=== PATIENT | female | born 1945 | race Caucasian/White ===

== ENCOUNTER 2019-10-16 16:20 | Emergency (ER) | payer MEDICARE, MEDICAID, SELFPAY ==
--- NOTE | ~2019-10-16 | XR_ITS ---
XR abdomen/kub 1V 10/16/2019 22:03 INDICATION: Constipation. Abdominal distention. TECHNIQUE: KUB COMPARISON: None FINDINGS: Bowel gas pattern is normal. Moderate colonic fecal loading. There is no evidence of free a ir, mass, organomegaly, ascites or obstruction. No abnormal calculi are seen. The bones appear inta ct. There are atherosclerotic changes. There is lumbar spondylosis. IMPRESSION: 1: No acute abdominal abnormality identified. Reviewed, dictated and finalized at location A.
--- NOTE | ~2019-10-16 | XR_ITS ---
EXAMINATION: XR chest 1V portable 10/16/2019 22:03 INDICATION: Weight loss PROCEDURE: AP portable chest COMPARISON: 11/25/2018 FINDINGS: The lungs are clear. The cardiomediastinal silhouette is within normal limits. There are no pleural effusions. There is no pneumothorax suspected. Calcified granuloma right lung base. Gene ralized osteopenia. Old healed distal right humeral fracture. There is atherosclerosis of the aorta. IMPRESSION: 1: NO ACUTE CARDIOPULMONARY DISEASE. Reviewed, dictated and finalized at location A.
--- NOTE | ~2019-10-16 | CT_ITS ---
EXAMINATION: CT abdomen pelvis wo con DATE: 10/16/2019 23:41 INDICATION: Mid abdominal pain TECHNIQUE: Computed tomography (CT) of the abdomen and pelvis was performed without intravenous contr ast. The dose-length product was 181.71 mGy-cm. Automated exposure control and iterative reconstructi on technique were employed. COMPARISON: CT dated 03/01/2014 FINDINGS: There small 2-3 mm nodules in the lingula, likely benign. Otherwise, lung bases unremarkabl e. Heart size normal. There are calcified granulomas in the right lower lung, spleen and liver, consi stent with chronic granulomatous disease. There is extensive atherosclerosis. No aneurysm. The pancreas, adrenal glands and kidneys are unremarkable. No lymphadenopathy. Nonobstructive bowel g as pattern. No free air or free fluid. There is scoliosis. No acute osseous abnormality. IMPRESSION: 1. No acute abdominal abnormality. 2: Small 2-3 mm nodules in the left upper lobe, likely benign. Follow-up CT in 12 months recommended. Reviewed, dictated and finalized at location A.
[2019-10-16 17:36] VITALS: BP 126/95; PULSE 97; RESP 20; TEMP 36.3; O2SAT 98
[2019-10-16 21:32] VITALS: BP 168/93; PULSE 91; RESP 20; O2SAT 97
--- NOTE | 2019-10-16 21:32 | PC.NURSE ---
Pt states last night she had trouble having a bowel movement, she pulled out small pieces. Pt states she doesnt know what color her BM was due to being legally blind. Pt states her bottom only hurts when she bothers it, states her bottom feels like its burning when it does hurt.
--- NOTE | 2019-10-16 21:40 | ED.ABDPAIN ---
HPI - Abdominal Pain General Chief Complaint: Abdominal Pain Stated Complaint: GI bleed/constipation/weight loss Time Seen by Provider: 10/16/19 21:25 Source: patient History of Present Illness HPI narrative: This patient is a 73 year old female who presents for evaluation of weight loss and constipation. Patient states there is a new nurse at [facility] who told her she looked like she was dehydrated. She reports she has been loosing weight over the past 7 years. She reports in 2012 she weighted 150 pounds and then she had a stroke. AFter getting out of rehab, she had lost 20 pounds. She has continued to lose weight since then. She reports she is also having an issue with constipation. Yesterday she had to strain to have a bowel movement. She states she does not know if she has abdominal pain but her abdomen just feels weird. SHe denies vomiting or fever. Related Data Home Medications Medication Instructions Recorded Confirmed ergocalciferol (vitamin D2) 1,250 50,000 unit PO WEEKLY 12/26/18 05/05/19 mcg (50,000 unit) capsule hard contact lens fitter #30 ml 12/26/18 05/05/19 light mineral oil 1 %-mineral oil drop EACH EYE 12/26/18 05/05/19 4.5 % eye drops polymyxin B sulf-trimethoprim drop EACH EYE 12/26/18 05/05/19 prednisolone acetate 1 % eye 1 drop RIGHT EYE Q12H 12/26/18 05/05/19 drops,suspension sodium chloride 5 % eye drops 1 drop EACH EYE TID 12/30/18 05/05/19 Allergies Allergy/AdvReac Type Severity Reaction Status Date / Time codeine Allergy Severe Hives Verified 05/01/19 13:51 Iodinated Contrast Media Allergy Unknown hives Verified 05/01/19 13:51 lisinopril Allergy Unknown hives Verified 05/01/19 13:51 Penicillins Allergy Unknown rash Verified 05/01/19 13:51 Sulfa (Sulfonamide Allergy Unknown rash Verified 05/01/19 13:51 Antibiotics) Contrast Media Allergy Unknown hives Uncoded 05/01/19 13:51 Review of Systems Review of Systems: All systems reviewed & are unremarkable except as noted in HPI and below Constitutional: Constitutional: Denies chills and Denies fever(s) Respiratory: Respiratory: Denies cough and Denies dyspnea Gastrointestinal: Gastrointestinal: Reports abdominal pain, Reports constipation, Denies nausea and Denies vomiting PMFSH Past Medical History Medical History (Updated 10/17/19 @ 00:18 by Jeannette Ugalde MD) CVA (cerebral vascular accident) Glass prosthetic eye on examination Hypothyroidism (acquired) Surgical History Surgical History (Updated 10/17/19 @ 00:16 by Jeannette Ugalde MD) H/O: hysterectomy Social History Social History Smoking status: Never smoker Second hand tobacco smoke exposure: No Alcohol intake: never Substance use: never Gender identity (if verbalized by the patient): Female Exam Const: General: alert Nutritional Appearance: thin Orientation/consciousness: patient oriented x3 Resp: Effort & Inspection: normal respiratory effort Auscultation: clear to auscultation bilaterally Cardio: Rate: regular rate Rhythm: regular rhythm Heart sounds: no murmurs GI: GI Palp: Yes Soft to palpation, Yes Tenderness to palpation present (GI) (left mid abdomen focal tenderness), No Guarding due to palpation present (GI) and No Rigid due to palpation Back/Spine/Pelvis: Back: no CVA tenderness Skin: General skin exam: normal color Rashes: no rashes Neuro: General: patient oriented x3 and moves all extremities Course Reevaluation(s) Reevaluation #1: Patient was found to have renal insufficiency so she was given IVF. No obstruction, mass or acute finding seen. Date: 10/17/19 Time: 00:16 Vital Signs Vital signs: Vital Signs Temperature 97.3 F L 10/16/19 17:36 Pulse Rate 97 10/16/19 17:36 Respiratory Rate 20 10/16/19 17:36 Blood Pressure 126/95 H 10/16/19 17:36 Pulse Oximetry 98 10/16/19 17:36 Temperature 97.3 F L 10/16/19 17:36 Pulse Rate 9
[2019-10-16 22:46] LABS: Basophils Absolute Auto 0.1 K/mm3 (0.0-0.1); Basophils Percent Auto 0.8 % (0.2-1.2); Eosinophils Absolute Auto 0.1 K/mm3 (0-0.3); Eosinophils Percent Auto 0.8 % (0-4.4); Hematocrit 33.5 % (37.0-47.0); Hemoglobin 11.4 g/dL (12.0-15.0); Immature Granulocyte Absolute 0.01 K/mm3 (0.00-0.031); Immature Granulocyte Percent A 0.2 % (0-0.5); Lymphocytes Absolute Auto 2.48 K/mm3 (0.9-3.2); Lymphocytes Percent Auto 40.7 % (18.3-44.2); Mean Corpuscular Hemoglobin 30.7 pg (26-34); Mean Corpuscular Volume 90.3 fl (80-100); Mean Platelet Volume 10.5 fl (7.4-10.4); Monocytes Absolute Auto 0.4 K/mm3 (0.1-0.6); Monocytes Percent Auto 7.1 % (2.6-8.5); Neutrophils Absolute Auto 3.1 K/mm3 (1.3-6.7); Neutrophils Percent Auto 50.4 % (45.5-73.1); Platelet Count Result 168 k/mm3 (150-375); Red Blood Count 3.71 M/mm3 (4.2-5.4); Red Cell Distribution Width 12.5 % (11.5-14.5); White Blood Count 6.1 K/mm3 (4.5-10.0)
[2019-10-16 23:00] VITALS: BP 128/58; RESP 16; O2SAT 90
[2019-10-16 23:01] LABS: Alanine Aminotransferase 11 U/L (4-35); Albumin Level 3.9 g/dL (3.5-5.1); Alkaline Phosphatase 59 U/L (38-126); Anion Gap 7 mmol/L (8-16); Aspartate Amino Transferase 21 U/L (14-36); Bilirubin,Total 0.8 mg/dL (0.2-1.3); Blood Urea Nitrogen 21 mg/dL (7-17); Calcium 8.9 mg/dL (8.4-10.2); Carbon Dioxide 25 mmol/L (22-30); Chloride 105 mmol/L (98-107); Estimated Glomerular Filt Rate > 60; Glucose 90 mg/dL (65-105); Lipase 97 U/L (23-300); Potassium 3.9 mmol/L (3.4-5.0); Sodium 137 mmol/L (137-145)
[2019-10-16 23:02] LABS: Magnesium 1.8 mg/dL (1.6-2.3)
[2019-10-16] MEDS: LACTATED RINGERS 1,000 ML 999 ML IV CONT (23:20)
--- NOTE | 2019-10-17 01:00 | PC.NURSE ---
This nurse spoke with [facility] at [facility] due to there being no nurse in the building. This nurse informed [facility] that Pt would b returning by EMS ETA of 0300.
--- NOTE | 2019-10-17 01:05 | PC.NURSE ---
called [facility] to transfer patient. Eta [id number]
[2019-10-17 01:10] LABS: Add Urine Microscopic? YES; Appearance Urine Clear (Clear); Bilirubin Urine Negative (Negative); Blood Urine 1+ (Negative); Color Urine Straw (Yellow); Glucose Urine UA Negative (Negative); Ketones Urine Trace mg/dL (Negative); Leukocyte Esterase Ur Trace LEU/UL (Negative); Nitrate Urine Negative (Negative); Protein Urine Negative (Negative); RBC Urine 0-2 /hpf (0-2); Squamous Epithelial Cell Urine Rare /hpf (Few); Urobilinogen Urine Negative mg/dL (<2.0); WBC Urine 0-3 /hpf
[2019-10-17 01:15] VITALS: BP 140/99; PULSE 85; RESP 17; O2SAT 98
[2019-10-17 01:30] VITALS: BP 135/63; PULSE 96; RESP 16; O2SAT 98
[2019-10-17 01:42] VITALS: BP 140/99; PULSE 85; RESP 17; O2SAT 98
[2019-10-17 02:45] VITALS: BP 121/59; PULSE 77; O2SAT 98
--- NOTE | 2019-10-17 02:53 | PC.NURSE ---
EMS ETA has changed to [id number].
[2019-10-17 05:43] VITALS: BP 118/68; PULSE 93; RESP 18; O2SAT 96
--- NOTE | 2019-10-17 07:13 | PC.NURSE ---
EMS eta [id number]
[2019-10-17 08:18] VITALS: BP 130/55; PULSE 89; RESP 18; O2SAT 98
== END 2019-10-17 08:19 ==
PROVIDERS: Emergency Provider General Practice; PCP Internal Medicine
DX: E86.0 Dehydration (principal); Z86.73 Personal history of transient ischemic attack (TIA), and cerebral infarction without residual deficits; E03.9 Hypothyroidism, unspecified; R91.8 Other nonspecific abnormal finding of lung field
CPT/HCPCS: 36415; 71045; 74018; 74176; 80053; 81001; 83690; 83735; 85025; 96360; 99284; J7120

== ENCOUNTER 2020-08-23 13:21 | Outpatient (CLI) | payer MEDICARE, MEDICAID, SELFPAY ==
[2020-08-23 13:54] LABS: Hematocrit 35.5 % (37.0-47.0); Hemoglobin 11.9 g/dL (12.0-15.0); Mean Corpuscular HGB Conc 33.5 g/dl (32-36); Mean Corpuscular Hemoglobin 30.5 pg (26-34); Mean Platelet Volume 10.3 fl (7.4-10.4); Platelet Count Result 186 k/mm3 (150-375); Red Cell Distribution Width 12.5 % (11.5-14.5); White Blood Count 5.9 K/mm3 (4.5-10.0)
[2020-08-23 14:06] LABS: Alanine Aminotransferase 10 U/L (4-35); Albumin Level 4.3 g/dL (3.5-5.1); Alkaline Phosphatase 65 U/L (38-126); Anion Gap 10 mmol/L (8-16); Aspartate Amino Transferase 24 U/L (14-36); Bilirubin,Total 0.8 mg/dL (0.2-1.3); Blood Urea Nitrogen 17 mg/dL (7-17); Calcium 9.4 mg/dL (8.4-10.2); Carbon Dioxide 25 mmol/L (22-30); Chloride 103 mmol/L (98-107); Estimated Glomerular Filt Rate > 60; Glucose 97 mg/dL (65-105); Potassium 4.1 mmol/L (3.4-5.0); Sodium 138 mmol/L (137-145)
[2020-08-23 14:35] LABS: Thyroid Stimulating Hormone 0.043 uIU/mL (0.465-4.680)
[2020-08-23 14:52] LABS: Free T4 Free Thyroxine 1.84 ng/mL (0.78-2.19); Vitamin D 25 Hydroxy 90.4 ng/mL
[2020-08-23 15:10] LABS: Folic Acid 13.6 ng/mL (2.76->20)
== END 2020-08-23 13:22 | disposition home or self-care (01) ==
LOC: ANHLAB 13:28
PROVIDERS: PCP Internal Medicine; Visit Provider Physician Assistant
DX: E03.9 Hypothyroidism, unspecified (principal); I10 Essential (primary) hypertension; R79.9 Abnormal finding of blood chemistry, unspecified; R53.83 Other fatigue; E55.9 Vitamin D deficiency, unspecified
CPT/HCPCS: 36415; 80053; 82306; 82607; 82746; 84439; 84443; 85027

== ENCOUNTER → 2020-09-06 13:51 | Outpatient (CLI) | payer MEDICARE, MEDICAID, SELFPAY ==
--- NOTE | ~2020-09-06 | MM_ITS ---
EXAMINATION: MM screening bird BI w chino HISTORY: Screening TECHNIQUE: Craniocaudal and mediolateral oblique 3-D tomosynthesis images were obtained and synthetic 2-D images were generated. CAD analysis was submitted and interpreted. COMPARISON: Comparison to multiple prior studies sequentially, with oldest reviewed study dated 03/12. BREAST PARENCHYMAL COMPOSITION: The breasts are extremely dense, which lowers the sensitivity of mamm ography. FINDINGS: There is a new low density in asymmetry in the lateral aspect of the right breast on CC vie w, best seen on exaggerated CC image. The left breast is stable without evidence for malignancy. IMPRESSION: 1. New focal masslike asymmetry lateral aspect of the right breast. 2. Additional mammographic views and possible breast ultrasound are recommended. BI-RADS Category 0: Incomplete: Needs additional imaging evaluation. Reviewed, dictated and finalized at location A. IMPRESSION: 1. New focal masslike asymmetry lateral aspect of the right breast. 2. Additional mammographic views and possible breast ultrasound are recommended . BI-RADS Category 0: Incomplete: Needs additional imaging evaluation.
== END ==
PROVIDERS: PCP Physician Assistant; Visit Provider Physician Assistant
DX: Z12.31 Encounter for screening mammogram for malignant neoplasm of breast (principal); R92.8 Other abnormal and inconclusive findings on diagnostic imaging of breast
CPT/HCPCS: 77063; 77067

== ENCOUNTER → 2020-09-27 12:37 | Outpatient (CLI) | payer MEDICARE, MEDICAID, SELFPAY ==
--- NOTE | ~2020-09-27 | MM_ITS ---
EXAMINATION: MM diagnostic bird RT w chino HISTORY: Follow-up right breast asymmetry TECHNIQUE: Additional 3-D tomosynthesis images of the right breast were performed and synthetic 2-D i mages were generated. CAD analysis was submitted and interpreted. COMPARISON: Comparison to multiple prior studies sequentially, with oldest reviewed study dated 03/12. BREAST PARENCHYMAL COMPOSITION: The breasts are extremely dense, which lowers the sensitivity of mamm ography FINDINGS: There are no suspicious masses, calcifications or architectural distortion in the right dwayne ast to suggest malignancy. Right breast asymmetry compresses with spot views, compatible superimposed fibroglandular tissue. IMPRESSION: 1. No mammographic evidence for malignancy in the right breast. 2. Routine yearly screening mammogram and regular clinical breast examination are recommended. BI-RADS Category 1: Negative Reviewed, dictated and finalized at location A. IMPRESSION: 1. No mammographic evidence for malignancy in the right breast. 2. Routine yearly screening mammogram and regular clinical breast examination a re recommended. BI-RADS Category 1: Negative
--- NOTE | ~2020-09-27 | DEXA_ITS ---
Bone Density Report Name: Marlene Mina Age: 74 Sex: Female Ethnicity: White Date of : 1945 Indication: postmenopausal osteoporosis; height loss; hysterectomy; Referring Provider: Fransico Crane Study: Bone densitometry was performed. Exam Date: September 27, 2020 Accession number: [id number] Bone Density: Region BMD T-score Z-score Classification AP Spine (L1-L4) 0.666 -3.5 -1.0 Osteoporosis Femoral Neck (Left) 0.301 -4.9 -2.8 Osteoporosis Total Hip (Left) 0.386 -4.6 -2.7 Osteoporosis Femoral Neck (Right) 0.346 -4.5 -2.4 Osteoporosis Total Hip (Right) 0.373 -4.7 -2.8 Osteoporosis Total Hip Mean 0.380 -4.7 -2.8 Osteoporosis World Health Organization criteria for BMD impression classify patients as: Normal (T-score at or above -1.0), Osteopenia (T-score between -1.0 and -2.5), or Osteoporosis (T-score at or below -2.5). 10-year Fracture Risk: FRAX not reported because: Some T-score for Spine Total or Hip Total or Femoral Neck at or below -2.5 Previous Exams: Region Exam Age BMD T-score BMD Change BMD Change Date g/cm2 vs Baseline vs Previous AP Spine(L1-L4) 09/27/2020 74 0.666 -3.5 -0.144* -0.084* 03/12/2017 71 0.750 -2.7 -0.061* 0.008 02/07/2015 69 0.742 -2.8 -0.068* -0.077* 02/01/2012 66 0.819 -2.1 0.009 0.003 12/26/2009 64 0.816 -2.1 0.006 0.006 05/17/2004 58 0.810 -2.2 Total Hip(Left) 09/27/2020 74 0.386 -4.6 -0.465* -0.202* 03/12/2017 71 0.588 -2.9 -0.263* 0.014 02/07/2015 69 0.574 -3.0 -0.277* -0.246* 02/01/2012 66 0.821 -1.0 -0.030* 0.083* 12/26/2009 64 0.737 -1.7 -0.114* -0.114* 05/17/2004 58 0.851 -0.7 Total Hip(Right) 09/27/2020 74 0.373 -4.7 -0.534* -0.194* 03/12/2017 71 0.568 -3.1 -0.340* 0.003 02/07/2015 69 0.565 -3.1 -0.342* -0.289* 02/01/2012 66 0.854 -0.7 -0.053* 0.055* 12/26/2009 64 0.799 -1.2 -0.108* -0.108* 05/17/2004 58 0.907 -0.3 *Denotes significance at 95% confidence level, LSC for AP Spine = 0.022 g/cm2, LSC for Total Hip = 0.027 g/cm2 Clinical Information Provided by Patient: Has used the following medications: Vitamin D Has the following medical conditions: Hysterectomy Patient maximum height was 62 Menopause Age: 39 Drinks caffeinated
== END ==
PROVIDERS: PCP Physician Assistant; Visit Provider Physician Assistant
DX: R92.8 Other abnormal and inconclusive findings on diagnostic imaging of breast (principal); M85.88 Other specified disorders of bone density and structure, other site; M81.0 Age-related osteoporosis without current pathological fracture
CPT/HCPCS: 77061; 77065; 77080; G0279

== ENCOUNTER 2021-05-02 09:23 | Outpatient (CLI) | payer MEDICARE, MEDICAID, SELFPAY ==
[2021-05-02 09:47] LABS: Hematocrit 36.3 % (37.0-47.0); Hemoglobin 12.1 g/dL (12.0-15.0); Mean Corpuscular HGB Conc 33.3 g/dl (32-36); Mean Corpuscular Hemoglobin 30.7 pg (26-34); Mean Corpuscular Volume 92.1 fl (80-100); Mean Platelet Volume 9.1 fl (7.4-10.4); Platelet Count Result 226 k/mm3 (150-375); Red Blood Count 3.94 M/mm3 (4.2-5.4); Red Cell Distribution Width 14.3 % (11.5-14.5); White Blood Count 6.3 K/mm3 (4.5-10.0)
[2021-05-02 09:57] LABS: Alanine Aminotransferase 12 U/L (4-35); Albumin Level 4.1 g/dL (3.5-5.1); Alkaline Phosphatase 61 U/L (38-126); Anion Gap 5 mmol/L (8-16); Aspartate Amino Transferase 22 U/L (14-36); Blood Urea Nitrogen 18 mg/dL (7-17); Calcium 8.9 mg/dL (8.4-10.2); Carbon Dioxide 27 mmol/L (22-30); Chloride 100 mmol/L (98-107); Estimated Glomerular Filt Rate > 60; Glucose 92 mg/dL (65-110); Potassium 4.2 mmol/L (3.4-5.0); Sodium 132 mmol/L (137-145)
[2021-05-02 10:15] LABS: Free T4 Free Thyroxine 1.13 ng/mL (0.78-2.19)
[2021-05-02 10:23] LABS: Add Urine Microscopic? YES; Appearance Urine Turbid (Clear); Bacteria Urine 2+ /hpf; Bilirubin Urine Negative (Negative); Blood Urine 1+ (Negative); Color Urine Yellow (Yellow); Glucose Urine UA Negative (Negative); Ketones Urine Negative (Negative); Leukocyte Esterase Ur 3+ LEU/UL (NEGATIVE); Mucus Urine Rare /lpf; Nitrate Urine Positive (Negative); Protein Urine 1+ mg/dL (Negative); RBC Urine 21-50 /hpf (0-2); Specific Grav Ur 1.009 (1.001-1.035); Squamous Epithelial Cell Urine Occasional /hpf (Few); Urobilinogen Urine Negative mg/dL (<2.0); WBC Clumps Urine Present /HPF; WBC Urine >75 /hpf (0-3)
[2021-05-02 11:04] LABS: Folic Acid 4.9 ng/mL (2.76->20)
== END 2021-05-02 09:24 | disposition home or self-care (01) ==
LOC: ANHLAB 09:26
PROVIDERS: PCP Internal Medicine; Visit Provider Physician Assistant
DX: E03.9 Hypothyroidism, unspecified (principal); R53.83 Other fatigue; R63.4 Abnormal weight loss
CPT/HCPCS: 36415; 80053; 81001; 82607; 82746; 84439; 84443; 85027

== ENCOUNTER 2021-05-14 15:09 | Inpatient (IN) | payer MEDICARE, MEDICAID, SELFPAY ==
--- NOTE | ~2021-05-14 | XR_ITS ---
EXAMINATION: XR hip LT 2V w AP pelvis EXAM DATE: 05/14/2021 15:45 INDICATION: fall, pain to left hip and pelvic bone TECHNIQUE: Left hip frontal, crosstable lateral projections for interpretation. Frontal projection pe lvis. Correlation is made to pelvic x-ray 03/02/2014. FINDINGS: Bones are osteopenic. Please note that osteopenia limits sensitivity for detecting fractur es by radiographs. There is mildly impacted left subcapital femoral neck fracture. Pelvic ring appe ars intact. No dislocation. IMPRESSION: Mildly impacted left subcapital femoral neck fracture. Reviewed, dictated and finalized at location .
--- NOTE | ~2021-05-14 | CT_ITS ---
EXAMINATION: CT brain wo con EXAM DATE: 05/14/2021 16:43 INDICATION: Fall, head injury. TECHNIQUE: Spiral CT of the head was performed without contrast. Axial, coronal and sagittal images were reviewed. The dose-length product (DLP) for this examination was 605.33 mGy-cm. The exposure w as tailored according to patient size, and iterative reconstruction (ASIR) was used as additional dos e reduction technique. Comparison is made to prior examination from 10/27/2012. FINDINGS: There is no acute intraparenchymal hemorrhage. No evidence of intraparenchymal brain mass lesion. No evidence of acute infarction. Please note that initial head CT has limited sensitivity f or small or acute infarctions. Small old left frontoparietal lobe paramedian infarction, was not pre sent in 2012. There is mild periventricular and subcortical hypodensity, nonspecific but probably re lated to small vessel ischemic disease. There is moderate prominence of the sulci and ventricles re lated to cerebral atrophy. There is intracranial carotid arteriosclerosis. There are no extra-axia l collections. There is no mass effect or midline shift. Left globe prosthesis. Right-sided catarac t surgery. Soft tissue is unremarkable. The visualized sinuses and mastoid air cells are well aerate d. IMPRESSION: 1. No acute intracranial findings. 2. Chronic age related findings. 3. 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 Reviewed, dictated and finalized at location G.
--- NOTE | ~2021-05-14 | XR_ITS ---
EXAMINATION: XR chest 1V portable EXAM DATE: 05/14/2021 16:14 INDICATION: pre-op . TECHNIQUE: Portable AP frontal chest x-ray was obtained. Comparison is made to prior examination from 10/16/2019. FINDINGS: The lungs are severely hyperinflated which can be seen with chronic obstructive pulmonary d isease (a clinical diagnosis of functional impairment), but is not diagnostic of it. There is right b asilar calcified granuloma. No confluent consolidation, pneumothorax or pleural effusion suspected. C ardiomediastinal silhouette is normal. There is aortic arteriosclerosis. There are bony degenerative changes. IMPRESSION: Chronic hyperinflation. Reviewed, dictated and finalized at location G. IMPRESSION: Chronic hyperinflation.
--- NOTE | ~2021-05-14 | XR_ITS ---
XR surgery orthopedic DATE: 05/15/2021 20:29 INDICATION: Left hip pinning TECHNIQUE: 2 spot C-arm images of left hip 35.1 seconds fluoroscopy time 2.86 mGy COMPARISON: 05/14/2021 pelvis and left hip FINDINGS: 3 lag screws traverse the intertrochanteric area and femoral neck extending into the femora l head, providing internal fixation for a mildly impacted virtually nondisplaced subcapital femoral n yaneth fracture. IMPRESSION: ORIF left subcapital femoral neck fracture Reviewed, dictated and finalized at Location A. Reviewed, dictated and finalized at location A.
[2021-05-14 15:07] VITALS: BP 113/92; PULSE 78; RESP 26; O2SAT 97
--- NOTE | 2021-05-14 15:59 | ECG_ITS ---
Measurements Intervals [place] Rate: 78 P: 86 GA: 192 QRS: -59 QRSD: 97 T: 79 QT: 365 QTc: 418 Interpretive Statements SINUS RHYTHM LEFT ANTERIOR FASCICULAR BLOCK [QRS AXIS <= -45, QR IN I, RS IN II] ABNORMAL ECG NO PREVIOUS ECG AVAILABLE FOR COMPARISON Electronically Signed On 05-14-2021 20:52:09 CDT by Alvin Holly M.D.
--- NOTE | 2021-05-14 16:01 | ED.FALL ---
HPI - Fall General Chief Complaint: Fall Stated Complaint: left hip pain, ground level fall Time Seen by Provider: 05/14/21 15:18 Source: patient and RN notes reviewed History of Present Illness HPI Narrative: 75-year-old female presenting to the emergency department for evaluation after having a ground-level fall at her residential. Patient states that she wears oversized shoes but has no other shoes to wear. Patient states she had a ground-level fall this morning during which she fell and landed on her left side and injured her hip. Patient states she did strike her face but denies any loss of consciousness. Patient is very cachectic. Patient's primary complaint is left hip pain worsened with movement. Related Data Home Medications Medication Instructions Recorded Confirmed hard eyeglass lens grinder #30 ml 12/26/18 04/01/21 light mineral oil 1 %-mineral oil drop EACH EYE 12/26/18 04/01/21 4.5 % eye drops polymyxin B sulfate-trimethoprim drop EACH EYE 12/26/18 04/01/21 eye drops prednisolone acetate 1 % eye 1 drop RIGHT EYE Q12H 12/26/18 04/01/21 drops,suspension sodium chloride 5 % eye drops 1 drop EACH EYE TID 12/30/18 04/01/21 olopatadine 0.1 % eye drops 1 drp EACH EYE BID 08/29/20 04/01/21 Allergies Allergy/AdvReac Type Severity Reaction Status Date / Time codeine Allergy Severe Hives Verified 05/14/21 17:41 Iodinated Contrast Media Allergy Unknown hives Verified 05/14/21 17:41 lisinopril Allergy Unknown hives Verified 05/14/21 17:41 Penicillins Allergy Unknown rash Verified 05/14/21 17:41 Sulfa (Sulfonamide Allergy Unknown rash Verified 05/14/21 17:41 Antibiotics) Contrast Media Allergy Unknown hives Uncoded 05/14/21 17:41 Review of Systems Review of Systems: CONSTITUTIONAL: Denies fever, chills, or sweats. EYES: Denies visual changes, redness, or discharge. ENT: Denies rhinorrhea, congestion, sore throat, or otalgia. CARDIOVASCULAR: Denies chest pain, palpitations, or edema. RESPIRATORY: Denies cough or dyspnea. GASTROINTESTINAL: Denies abdominal pain, nausea, vomiting, or diarrhea. GENITOURINARY: Denies dysuria or hematuria. SKIN: Denies rash or itching. MUSCULOSKELETAL: Left hip pain NEUROLOGIC: Denies headache, numbness, or weakness. 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 HEAD: normocephalic, atraumatic. EYES: PERRLA/EOMI, conjunctivae clear. NOSE: Normal no drainage NECK: Supple. No adenopathy, no masses. RESPIRATORY: Airway patent, respirations nonlabored. Clear to auscultation bilaterally, no rales, rhonchi, wheezing. CARDIOVASCULAR: Regular rate and rhythm without murmurs rubs or gallops. ABDOMINAL: Soft, nontender, nondistended, normal bowel sounds MUSCULOSKELETAL: left hip tenderness NEURO: Alert. patient at her neuro baseline SKIN: Warm, dry. Normal Color Course Course Emergency Course: case was discussed with ortho and Dr Moore will see the patient as consult. Patient will be made n.p.o. at midnight. Case was discussed with the hospitalist and patient was accepted to [facility]. Vital Signs Vital signs: Vital Signs Pulse Rate 78 05/14/21 15:07 Respiratory Rate 26 H
[2021-05-14 16:35] LABS: Basophils Percent Auto 0.4 % (0.2-1.2); Eosinophils Percent Auto 0.1 % (0-4.4); Hematocrit 33.8 % (37.0-47.0); Hemoglobin 11.4 g/dL (12.0-15.0); Immature Granulocyte Absolute 0.04 K/mm3 (0.00-0.031); Immature Granulocyte Percent A 0.4 % (0-0.5); Lymphocytes Absolute Auto 1.04 K/mm3 (0.9-3.2); Lymphocytes Percent Auto 10.6 % (18.3-44.2); Mean Corpuscular HGB Conc 33.7 g/dl (32-36); Mean Corpuscular Hemoglobin 31.1 pg (26-34); Mean Corpuscular Volume 92.1 fl (80-100); Mean Platelet Volume 9.7 fl (7.4-10.4); Monocytes Absolute Auto 0.6 K/mm3 (0.1-0.6); Monocytes Percent Auto 5.6 % (2.6-8.5); Neutrophils Absolute Auto 8.1 K/mm3 (1.3-6.7); Neutrophils Percent Auto 82.9 % (45.5-73.1); Platelet Count Result 197 k/mm3 (150-375); Red Blood Count 3.67 M/mm3 (4.2-5.4); Red Cell Distribution Width 14.2 % (11.5-14.5); White Blood Count 9.8 K/mm3 (4.5-10.0)
[2021-05-14 16:44] LABS: Prothrombin Time 13.1 Seconds (11.1-14.7)
[2021-05-14] MEDS: fentaNYL CITRATE INJ (*CRX) 100 MCG/2 ML VIAL 17.3 MCG IV PUSH (16:44)
[2021-05-14 16:50] LABS: Alanine Aminotransferase 17 U/L (4-35); Alkaline Phosphatase 68 U/L (38-126); Anion Gap 7 mmol/L (8-16); Aspartate Amino Transferase 24 U/L (14-36); Blood Urea Nitrogen 14 mg/dL (7-17); Calcium 8.7 mg/dL (8.4-10.2); Carbon Dioxide 26 mmol/L (22-30); Chloride 99 mmol/L (98-107); Estimated Glomerular Filt Rate > 60; Glucose 104 mg/dL (65-110); Potassium 3.6 mmol/L (3.4-5.0); Sodium 132 mmol/L (137-145)
[2021-05-14 18:01] VITALS: BP 131/52; PULSE 72; RESP 16; O2SAT 99
--- NOTE | 2021-05-14 18:25 | ADMGEN ---
This patient, Marlene Mina, was admitted to 2 Medical Room 259-01. Patient/family oriented to hospital policies and general routines including ID bracelet, bed and alarms, visiting hours, pain management, procedures, bathroom and other care routines, personal items, smoking policy, room service/diet, and visiting hours. Information on how to activate the Rapid Response Team has been discussed. Patient/Family are encouraged to report perceived risks to care and to ask questions if they do not understand what they are told or what they should do.
--- NOTE | 2021-05-14 18:30 | PM.IMHP ---
H&P: HPI History of Present Illness Date/Time: 05/14/21 18:30 Chief Complaint: Left hip pain after fall. Narrative: This is a 75-year-old female with history of stroke, hypothyroidism, and glaucoma presented to the emergency department from [facility] for evaluation of left hip pain after a fall. She apparently got tangled up in her over sized shoes and she fell to the ground, landing on her left hip. She had immediate, significant aching and spasming pain in that left hip and was unable to get herself up. Apparently she was unable to call for help and staff found her on the ground during their rounds this afternoon. Aside from landing on her hip she believes that she struck the left side of her face though she denies loss of consciousness. Imaging done on arrival to the ED showed a mildly impacted left subcapital femoral neck fracture and she is being admitted in this setting. At the time my evaluation she has no specific complaints and she denies headache, vertigo, loss of consciousness, cold and flu symptoms, chest pain, pleuritic pain, palpitations, shortness of breath, nausea, and vomiting. No paresthesias, skin color, or temperature changes distal to fracture. She has no known history of cardiac or pulmonary disease. Review of Systems Review of Systems: Twelve systems were reviewed. 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 She reports some mild right-sided weakness from a previous stroke. No cold or flu symptoms. No diarrhea or dysuria. Patient reports progressive weight loss over the years, stating that she does not like the food at [facility]. She is apparently on a heart healthy diet there. She denies dysphagia and concerns for aspiration though it looks like she does have a history of dysphagia. She also has spasmodic dysphonia. She denies sick contacts. Previously on Sinemet for possible Parkinson but she states she has not taken it for years. Except as documented, all other systems were reviewed and are negative. [facility] Past Medical History Medical History (Updated 05/14/21 @ 22:58 by Olga Lidia Betancourt PA-C) Cerebrovascular disease Degenerative disc disease Glaucoma Hypothyroidism Shingles Spastic dysphonia Surgical History Surgical History (Updated 05/14/21 @ 22:53 by Olga Lidia Betancourt PA-C) History of corneal transplant History of eye prosthesis Left History of hysterectomy for benign disease Family History Family History Father Patient's father is Family history of emphysema Mother Family history of cardiovascular disease Social History Social History (Updated 05/14/21 @ 22:53 by Olga Lidia Betancourt PA-C) Social History: Surrogate decision maker: Macarenamich Celestin, friend. Code status: Full code. Smoking status: Never smoker Second hand tobacco smoke exposure: No Alcohol intake: never Substance use: never Substance use type: does not use Additional living arrangements comments: Resides at [facility]. . She has a son but they are estranged apparently. Spiritual care concerns: No Meds Home Medications and Allergies Home Medications Medication Instructions Recorded Confirmed Type hard lens inspector #30 ml 12/26/18 04/01/21 History light mineral oil 1 %-mineral oil drop EACH EYE 12/26/18 04/01/21 History 4.5 % eye drops polymyxin B sulfate-trimethoprim drop EACH EYE 12/26/18 04/01/21 History eye drops prednisolone acetate 1 % eye 1 drop RIGHT EYE Q12H 12/26/18 04/01/21 History drops,suspension sodium chloride 5 % eye drops 1 drop EACH EYE TID 12/30/18 04/01/21 History propranolol 60 mg capsule,24 60 mg PO DAILY #30 cap 03/21/20 04/01/21 Rx hr,extended release phenylephrine 0.25 %-mineral oil 1 applic RECTAL QID PRN #57 g 04/08/20 04/01/21 Rx 14 %-
[2021-05-14 18:42] VITALS: BP 131/73; PULSE 87; RESP 21; TEMP 37.2; O2SAT 98
[2021-05-14 19:30] VITALS: BMI 15.2
[2021-05-14 20:00] VITALS: PULSE 93; RESP 20; O2SAT 97
--- NOTE | 2021-05-14 20:03 | PM.CNOR ---
Assessment and Plan Additional Plan [place] 2 fem neck fx on left hip medicine to see and clear for surg plan Insitu pinning of fem neck fx NPO after MN History of Present Illness HPI Consult date: 05/14/21 Chief complaint: L Femoral Neck Fracture Narrative: 75 yo legally blind lives in assistive living or nursing facility. Fell earlier today. very slightly built with cachexia. Left hip noted to have impacted fx on xray. [facility] Past Medical History Medical History (Updated 05/14/21 @ 18:54 by Olga Lidia Betancourt PA-C) Cerebrovascular disease Hypothyroidism Hypothyroidism (acquired) Spastic dysphonia Surgical History Surgical History (Updated 05/14/21 @ 18:54 by Olga Lidia Betancourt PA-C) History of hysterectomy for benign disease Family History Family History Father Patient's father is Family history of emphysema Mother Family history of cardiovascular disease Social History Social History (Updated 05/14/21 @ 19:00 by Olga Lidia Betancourt PA-C) Social History: Surrogate decision maker: Macarena Celestin, friend. Code status: Full code. Smoking status: Never smoker Second hand tobacco smoke exposure: No Alcohol intake: never Substance use: never Substance use type: does not use Additional living arrangements comments: Resides at [facility]. Spiritual care concerns: No Meds Home Medications and Allergies Home Medications Medication Instructions Recorded Confirmed Type hard last cleaner #30 ml 12/26/18 04/01/21 History light mineral oil 1 %-mineral oil drop EACH EYE 12/26/18 04/01/21 History 4.5 % eye drops polymyxin B sulfate-trimethoprim drop EACH EYE 12/26/18 04/01/21 History eye drops prednisolone acetate 1 % eye 1 drop RIGHT EYE Q12H 12/26/18 04/01/21 History drops,suspension sodium chloride 5 % eye drops 1 drop EACH EYE TID 12/30/18 04/01/21 History propranolol 60 mg capsule,24 60 mg PO DAILY #30 cap 03/21/20 04/01/21 Rx hr,extended release phenylephrine 0.25 %-mineral oil 1 applic RECTAL QID PRN #57 g 04/08/20 04/01/21 Rx 14 %-petrolatm 74.9 % rectal ointment olopatadine 0.1 % eye drops 1 drp EACH EYE BID 08/29/20 04/01/21 History ibandronate 150 mg tablet 150 mg PO MONTHLY #12 tablet 09/30/20 04/01/21 Rx docusate sodium 100 mg tablet 200 mg PO .QHS #60 tablet 10/27/20 04/01/21 Rx polyethylene glycol 3350 17 gram 17 g PO DAILY #30 ea 10/27/20 04/01/21 Rx oral powder packet ergocalciferol (vitamin D2) 1,250 50,000 unit PO .COMPLEX #6 cap 10/31/20 04/01/21 Rx mcg (50,000 unit) capsule magnesium hydroxide 1,200 mg 1,200 mg PO QHS PRN #90 tablet 11/02/20 04/01/21 Rx chewable tablet valacyclovir 1 gram tablet 1,000 mg PO TID #21 tablet 03/21/21 04/01/21 Rx collagenase clostridium histo. 250 1 applic TOPICAL DAILY PRN #90 g 03/28/21 03/28/21 Rx unit/gram topical ointment food supplemt, lactose-reduced 1 ea PO TID #1422 ml 03/28/21 03/28/21 Rx 0.06 gram-0.8 kcal/mL oral liquid levothyroxine 50 mcg tablet 50 mcg PO DAILY #30 tablet 04/10/21 Rx triamcinolone acetonide 0.1 % 1 applic TOPICAL BID #30 g 04/10/21 Rx topical cream Allergies Allergy/AdvReac Type Severity Reaction Status Date / Time codeine Allergy Severe Hives Verified 05/14/21 17:41 Iodinated Contrast Media Allergy Unknown hives Verified 05/14/21 17:41 lisinopril Allergy Unknown hives Verified 05/14/21 17:41 Penicillins Allergy Unknown rash Verified 05/14/21 17:41 Sulfa (Sulfonamide Allergy Unknown rash Verified 05/14/21 17:41 Antibiotics) Contrast Media Allergy Unknown hives Uncoded 05/14/21 17:41 Vital Signs Vital Signs - 24 hr 05/14/21 15:07 05/14/21 18:01 05/14/21 18:42 Temperature 37.2 C Pulse Rate 78 72 87 Respiratory Rate 26 H 16 21 H Blood Pressure 113/92 H 131/52 L 131/73 Pulse Oximetry 97 99 98 Exam Neuro: Other: Left hip tender over gr [place] man in
[2021-05-14] MEDS: fentaNYL CITRATE INJ (*CRX) 100 MCG/2 ML VIAL 15 MCG IV PUSH (21:59)
[2021-05-14 22:00] VITALS: BP 150/80; PULSE 93; RESP 20; TEMP 36.2; O2SAT 98
[2021-05-14 22:39] VITALS: O2SAT 97
[2021-05-15] VITALS (14 sets, daily range): BP systolic 105–164; BP diastolic 43–61; PULSE 48–94; RESP 15–21; TEMP 35.7–37.3; O2SAT 97–100
--- NOTE | 2021-05-15 05:40 | WPDANESEPP ---
Anes - Eval Pre Procedure Date/Time: 05/15/21 05:40 Pre Op Diagnosis: L Femoral Neck Fracture Patient Data Age: 75 Gender: F Height: 1.5 m Weight: 34.5 kg Last Vital Signs Temp 36.2 C L 05/14/21 22:00 Pulse 93 05/14/21 22:00 Resp 20 05/14/21 22:00 BP 150/80 H 05/14/21 22:00 Pulse Ox 97 05/14/21 22:39 Allergies Allergy/AdvReac Type Severity Reaction Status Date / Time codeine Allergy Severe Hives Verified 05/15/21 01:08 Iodinated Contrast Media Allergy Unknown hives Verified 05/15/21 01:08 lisinopril Allergy Unknown hives Verified 05/15/21 01:08 Penicillins Allergy Unknown rash Verified 05/15/21 01:08 Sulfa (Sulfonamide Allergy Unknown rash Verified 05/15/21 01:08 Antibiotics) Contrast Media Allergy Unknown hives Uncoded 05/15/21 01:08 Home Medications Medication Instructions Recorded Confirmed Type hard lens cementer #30 ml 12/26/18 05/14/21 History light mineral oil 1 %-mineral oil 1 drop EACH EYE PRN PRN 12/26/18 05/14/21 History 4.5 % eye drops polymyxin B sulfate-trimethoprim 1 drop EACH EYE BID PRN 12/26/18 05/14/21 History eye drops prednisolone acetate 1 % eye 1 drop RIGHT EYE DAILY 12/26/18 05/14/21 History drops,suspension sodium chloride 5 % eye drops 1 drop RIGHT EYE TID 12/30/18 05/14/21 History propranolol 60 mg capsule,24 60 mg PO DAILY #30 cap 03/21/20 05/14/21 Rx hr,extended release phenylephrine 0.25 %-mineral oil 1 applic RECTAL QID PRN #57 g 04/08/20 05/14/21 Rx 14 %-petrolatm 74.9 % rectal ointment olopatadine 0.1 % eye drops 1 drp EACH EYE BID 08/29/20 05/14/21 History docusate sodium 100 mg tablet 200 mg PO .QHS #60 tablet 10/27/20 05/14/21 Rx polyethylene glycol 3350 17 gram 17 g PO DAILY #30 ea 10/27/20 05/14/21 Rx oral powder packet ergocalciferol (vitamin D2) 1,250 50,000 unit PO .COMPLEX #6 cap 10/31/20 05/14/21 Rx mcg (50,000 unit) capsule magnesium hydroxide 1,200 mg 1,200 mg PO QHS PRN #90 tablet 11/02/20 05/14/21 Rx chewable tablet valacyclovir 1 gram tablet 1,000 mg PO TID #21 tablet 03/21/21 05/14/21 Rx collagenase clostridium histo. 250 1 applic TOPICAL DAILY PRN #90 g 03/28/21 05/14/21 Rx unit/gram topical ointment levothyroxine 50 mcg tablet 50 mcg PO DAILY #30 tablet 04/10/21 05/14/21 Rx triamcinolone acetonide 0.1 % 1 applic TOPICAL BID #30 g 04/10/21 05/14/21 Rx topical cream artificial tears solution 2 drp OPHTHALMIC (EYE) QID PRN 05/14/21 05/14/21 History artificial tears with lanolin 1 applic RIGHT EYE Q1-4H PRN 05/14/21 05/14/21 History [Akwa Tears] carbidopa-levodopa 1.5 tablet PO TID 05/14/21 05/14/21 History clotrimazole-betamethasone 1 applic TOPICAL BID PRN 05/14/21 05/14/21 History [Lotrisone] hydrocortisone-acetic acid 5 drp OTIC (EAR) TID PRN 05/14/21 05/14/21 History ibandronate [Boniva] 150 mg PO MONTHLY 05/14/21 05/14/21 History lifitegrast [Xiidra] 1 drp RIGHT EYE BID 05/14/21 05/14/21 History lucgmsfb-xirnbqerrTs-lhmbbdewS 1 applic TOPICAL TID 05/14/21 05/14/21 History [Triple Antibiotic] neomycin-polymyxin 4 applic TOPICAL Q4-8H PRN 05/14/21 05/14/21 History phenyleph-min oil-petrolatum 1 applic RECTAL QAM AND QHS PRN 05/14/21 05/14/21 History [Preparation H] Laboratory Tests 05/14/21 05/14/21 05/14/21 16:07 16:07 16:07 WBC 9.8 K/mm3 K/mm3 (4.5-10.0) RBC 3.67 M/mm3 L M/mm3 (4.2-5.4) Hgb 11.4 g/dL L g/dL (12.0-15.0) Hct 33.8 % L % (37.0-47.0) MCV 92.1 fl fl (80-100) MCH 31.1 pg pg (26-34) MCHC 33.7 g/dl g/dl (32-36) RDW 14.2 % % (11.5-14.5) Plt Count 197 k/mm3 k/mm3 (150-375) MPV 9.7 fl fl (7.4-10.4) Immature Gran % (Auto) 0.4 % % (0-0.5) Neut % (Auto) 82.9 % H % (45.5-73.1) Lymph % (Auto) 10.6 % L % (18.3-44.2) [place] % (Auto) 5.6 % % (2.6-8.5) Eos % (Auto) 0.1 % % (0-4.4) Baso % (Auto) 0.4 % %
[2021-05-15] MEDS: LEVOTHYROXINE SODIUM 50 MCG TABLET PO (05:51)
[2021-05-15] MEDS: fentaNYL CITRATE INJ (*CRX) 100 MCG/2 ML VIAL 15 MCG IV PUSH ×3 (05:55→15:59)
[2021-05-15 06:12] LABS: Hemoglobin 11.3 g/dL (12.0-15.0); Mean Corpuscular HGB Conc 33.2 g/dl (32-36); Mean Corpuscular Hemoglobin 31.2 pg (26-34); Mean Corpuscular Volume 93.9 fl (80-100); Mean Platelet Volume 9.4 fl (7.4-10.4); Platelet Count Result 181 k/mm3 (150-375); Red Blood Count 3.62 M/mm3 (4.2-5.4); Red Cell Distribution Width 14.1 % (11.5-14.5); White Blood Count 6.6 K/mm3 (4.5-10.0)
[2021-05-15 06:23] LABS: Anion Gap 9 mmol/L (8-16); Blood Urea Nitrogen 18 mg/dL (7-17); Calcium 8.6 mg/dL (8.4-10.2); Carbon Dioxide 23 mmol/L (22-30); Chloride 100 mmol/L (98-107); Estimated Glomerular Filt Rate > 60; Glucose 92 mg/dL (65-110); Magnesium 1.9 mg/dL (1.6-2.3); Sodium 132 mmol/L (137-145)
[2021-05-15 08:00] LABS: Free T4 Free Thyroxine Reflex 1.38 ng/dL (0.78-2.19)
[2021-05-15] MEDS: OLOPATADINE 0.1% OPHTH SOLN 5 ML BTL 1 DROP EACH EYE ×2 (09:44→16:02)
[2021-05-15] MEDS: ARTIFICIAL TEARS OPHTH SOLN 15 ML BOTTLE 2 DROP EACH EYE (09:46)
[2021-05-15] MEDS: TRIAMCINOLONE ACET 0.1% CREAM 15 GM TUBE 1 APPLIC TOPICAL ×2 (09:49→16:02)
[2021-05-15] MEDS: valACYclovir HCL 500 MG TABLET 1000 MG PO (09:50)
[2021-05-15] MEDS: PROPRANOLOL HCL 60 MG CAPSULE CR PO (09:50)
[2021-05-15] MEDS: SODIUM CHLORIDE 5% OP SOLN 15 ML BTL 1 DROP RIGHT EYE ×2 (09:53→16:02)
[2021-05-15] MEDS: ONDANSETRON INJ 4 MG/2 ML VIAL IV PUSH (10:16)
--- NOTE | 2021-05-15 11:11 | PM.IMPN ---
Progress Note: A&P Assessment and Plan (1) Closed fracture of neck of left femur: Qualifiers: Encounter type: initial encounter Qualified Code(s): S72.002A - Fracture of unspecified part of neck of left femur, initial encounter for closed fracture Code(s): S72.002A - Fracture of unspecified part of neck of left femur, initial encounter for closed fracture Status: Acute Assessment and Plan: - OR today for surgical management. - Fall Precautions. - Will need PT and OT ordered prior to discharge as determined by Orthopedics. - Post-operative anticoagulation to be managed by Orthopedics as well. - Will treat post-operative pain. (2) Hypothyroidism: Qualifiers: Hypothyroidism type: unspecified Qualified Code(s): E03.9 - Hypothyroidism, unspecified Code(s): E03.9 - Hypothyroidism, unspecified Status: Chronic Assessment and Plan: - Continue Levothyroxine. - TSH is 4.040 (3) Fall from ground level: Code(s): W18.30XA - Fall on same level, unspecified, initial encounter Status: Acute Assessment and Plan: - Fall Precautions. - PT and OT evaluations post-operatively. (4) Postherpetic neuralgia: Code(s): B02.29 - Other postherpetic nervous system involvement Status: Acute Assessment and Plan: - Currently on Valtrex 1000 mg po TID - Treat associated pain for post-herpetic neuralgia. (5) Weight loss, unintentional: Code(s): R63.4 - Abnormal weight loss Status: Acute Assessment and Plan: - TSH was checked and is within normal range. - Continue a regular diet. - Consult dietitian - Supplemental protein on each tray. Time Spent With Patient Time with patient: 15 - 25 minutes Subjective Date/time seen: 05/15/21 7661 This 75 year old female patient is examined at the bedside after being admitted to the hospital after sustaining a GLF at [facility] where she lives. She landed on her left side and sustained a fracture of the left femoral neck. She believes it is due to her shoes that she fell as she says they are too big for her. She will be going to the OR today for surgical management. Pt. has multiple complaints this AM including the pain in her leg, post-herpetic pain as she most recently had shingles and she hurts along her right flank and her back, and she has complaints of being anxious as she states she knows several people who had their hip replaced and they . The pt. is legally blind secondary to her glaucoma and overall appears very, very emaciated and feeble. She denies any CP, Dyspnea, N/V/D/urinary complaints at this time. Review of Systems Review of Systems: A full 12 point ROS was completed and is otherwise unremarkable with exception of what is noted in HPI. All systems reviewed & are unremarkable except as noted in HPI and below Exam Const: General: in distress and uncomfortable HENMT: Mouth: Yes moist mucous membranes Eyes: Sclera: sclerae normal Other: Pt. is legally blind. Her left eye is deviated outward and her right eye is clouded. Neck: Neck: supple and no JVD Resp: Effort & Inspection: normal respiratory effort Auscultation: clear to auscultation bilaterally Cardio: Rate: regular rate Rhythm: regular rhythm GI: Inspection: non-distended GI Palp: Yes Soft to palpation and No Tenderness to palpation present (GI) Auscultation: normal bowel sounds Skin: General skin exam: normal color and no rashes or lesions noted Neuro: General: gait normal Cognition (Neuro): normal cognition Speech: normal speech Motor exam (neuro): 5/5 motor strength present throughout and Normal motor muscle tone present throughout Extrem: General: normal to inspection Right upper extremity: normal to inspection Left upper extremity: normal to inspection Right lower extremity: normal to inspection Left lower extremity: normal to inspection Psych: Mental Status: mental status grossly normal Affect
--- NOTE | 2021-05-15 17:14 | WPDHPUPDATE1 ---
History and Physical Update Update Date/Time: 05/15/21 17:14 History and Physical has been reviewed, including an updated exam of the patient. There are NO changes in the patient's condition. Risks, benefits, and alternatives have been discussed and questions answered. Patient agrees to proceed with procedure. Will proceed with Insitu pinning of left femoral neck fracture.
--- NOTE | 2021-05-15 17:55 | PC.NURSE ---
To OR via bed. Incontinence of urine. Depends dry.
--- NOTE | 2021-05-15 18:15 | SUR.PREOP ---
DR DANIELS TRIED TO CALL BOTH BOTH AND FABIOLA WITHOUT AN ANSWER.
[2021-05-15] MEDS: KETOROLAC 15 MG/ML VIAL (*BKC) IV PUSH ×2 (18:54)
[2021-05-15] MEDS: LACTATED RINGERS 1,000 ML 30 ML IV CONT (18:55)
[2021-05-15] MEDS: TRANEXAMIC ACID 1,000MG/ISO100 1,000 MG/100 ML BAG 200 MG IVPB (18:57)
[2021-05-15] MEDS: ACETAMINOPHEN 500 MG TABLET 1000 MG PO (19:06)
[2021-05-15] MEDS: ceFAZolin 2 GM/D5W 50 ML 2 GM/50 ML BAG IVPB (19:32)
--- NOTE | 2021-05-15 19:34 | WPDANESEFPP ---
Anes - Eval Final PreProcedure Day of Procedure 05/15/21 19:34 Patient weight: cachectic Heart: regular rate and rhythm Lungs: clear to auscultation and normal air movement Airway: Mallampati scale class III Neurological: alert and oriented Last oral intake: >/= 8 hours ASA classification: IV Emergent: no Anesthetic plan: proceed Anesthesia type and monitoring: general GIVS and LMA and standard monitoring Results Review: All pre-operative results and documents have been reviewed as part of the pre-operative evaluation. Informed Consent: The patient's anesthetic plan and its attendant risks and benefits were discussed with the patient/family/POA. Questions were solicited and answers provided to the satisfaction of the patient/family/POA.
--- NOTE | 2021-05-15 20:32 | P.OP_ITS ---
Procedure Note - Detailed Date of Procedure 05/15/21 Pre-op Diagnosis L Femoral Neck Fracture Post-op Diagnosis Same Procedure Performed left InSitu pinning of a femoral neck fracture Surgeon Marlon Moore MD Indications Femoral Neck Fracture Findings Femoral Neck Fracture Description of Procedure Patient was identified and brought to the operating room. After general anesthetic the patient was placed on the fracture table. The correct hip being the [left] hip was identified and viewed under fluoroscopy. In the AP and lateral planes we confirmed that an acceptable near anatomical reduction was obtained. Patient was then sterilely prepped and draped in the usual fashion. Under fluoroscopic control fletcher were made on the skin using a guidewire. The angle of the femoral neck was marked. The lateral aspect of the greater troc hanter was marked. A surgical time in was then performed and we confirmed this was the correct patient. All the equipment necessary for the proposed procedure was available. The patient had received appropriate IV antibiotics as necessary for the procedure. We reviewed any pertinent medical data. All the personnel in the OR were polled and all agreed we were ready to proceed. Small incision was made over the greater trochanter laterally. A guidewire was then placed into the center of the femoral head just on the inferior aspect of the femoral neck. This was checked under AP and lateral planes and found to be in a good position for the inferior screw. A superior anterior guidewire was then placed and checked in a similar manner. A superior posterior guidewire was then placed and checked. Once the 3 screws had been placed in a triangular configuration with the apex of the triangle toward the calcar the guidewires were measured and appropriately sized screws were chosen. The guidewires were then drilled and the screws were placed. Washers were placed as needed. The final construct was checked under AP and lateral fluoroscopy and found to be in good position maintaining the fracture configuration. The wound was then copiously irrigated. A 3-0 Monocryl was used to close the skin incision. A silver dressing was applied. Hemostasis was obtained throughout as needed with electrocautery. Patient returned to the recovery room in stable condition. The estimated blood loss was scant. 5 cc of blood loss recorded. Drains No Packing No Pathology None sent Complications No immediate complications Condition Stable Disposition PACU
--- NOTE | 2021-05-15 20:41 | SUR.PHASEI ---
Notified Dr Moore regarding drainage around dressing lt hip. Per his instructions Added ABD dressing on top of Mepilex.
--- NOTE | 2021-05-15 20:41 | SUR.OPER ---
left hip 6.5 cannulated screws 85mm x2, 80mm x1. Biomet
--- NOTE | 2021-05-15 21:38 | PC.NURSE ---
2129 returned from PACU, drowsy, but alert. dressing dry and intact to left hip. neurovascular status in tact and stable. pain controlled at this time.
[2021-05-15] MEDS: ACETAMINOPHEN 325 MG TABLET 650 MG PO (22:11)
[2021-05-15] MEDS: SODIUM CHLORIDE 0.9% IV 1,000 ML 125 ML IV CONT (22:11)
[2021-05-15] MEDS: DOCUSATE SODIUM 100 MG CAPSULE 200 MG PO (22:12)
[2021-05-16] VITALS (8 sets, daily range): BP systolic 97–131; BP diastolic 46–57; PULSE 58–74; RESP 18–21; TEMP 36.2–37; O2SAT 97–100; BMI 15.6
[2021-05-16] MEDS: ACETAMINOPHEN 325 MG TABLET 650 MG PO (05:24)
[2021-05-16] MEDS: LEVOTHYROXINE SODIUM 50 MCG TABLET PO (05:25)
[2021-05-16] MEDS: SODIUM CHLORIDE 0.9% IV 1,000 ML 125 ML IV CONT (05:26)
[2021-05-16 06:04] LABS: Basophils Percent Auto 0.6 % (0.2-1.2); Eosinophils Percent Auto 0.6 % (0-4.4); Hematocrit 34.3 % (37.0-47.0); Hemoglobin 10.8 g/dL (12.0-15.0); Immature Granulocyte Absolute 0.02 K/mm3 (0.00-0.031); Immature Granulocyte Percent A 0.3 % (0-0.5); Lymphocytes Absolute Auto 1.61 K/mm3 (0.9-3.2); Mean Corpuscular HGB Conc 31.5 g/dl (32-36); Mean Corpuscular Volume 98.6 fl (80-100); Mean Platelet Volume 9.5 fl (7.4-10.4); Monocytes Absolute Auto 0.6 K/mm3 (0.1-0.6); Monocytes Percent Auto 8.6 % (2.6-8.5); Neutrophils Absolute Auto 4.7 K/mm3 (1.3-6.7); Neutrophils Percent Auto 66.9 % (45.5-73.1); Platelet Count Result 164 k/mm3 (150-375); Red Blood Count 3.48 M/mm3 (4.2-5.4); Red Cell Distribution Width 14.3 % (11.5-14.5)
[2021-05-16 06:22] LABS: Alanine Aminotransferase 12 U/L (4-35); Albumin Level 3.2 g/dL (3.5-5.1); Alkaline Phosphatase 53 U/L (38-126); Anion Gap 7 mmol/L (8-16); Aspartate Amino Transferase 19 U/L (14-36); Bilirubin,Total 1.1 mg/dL (0.2-1.3); Blood Urea Nitrogen 34 mg/dL (7-17); Carbon Dioxide 23 mmol/L (22-30); Chloride 105 mmol/L (98-107); Estimated Glomerular Filt Rate > 60; Glucose 85 mg/dL (65-110); Magnesium 1.7 mg/dL (1.6-2.3); Potassium 3.9 mmol/L (3.4-5.0); Sodium 135 mmol/L (137-145)
--- NOTE | 2021-05-16 07:41 | PM.IMPN ---
Progress Note: A&P Assessment and Plan (1) Closed fracture of neck of left femur: Qualifiers: Encounter type: initial encounter Qualified Code(s): S72.002A - Fracture of unspecified part of neck of left femur, initial encounter for closed fracture Code(s): S72.002A - Fracture of unspecified part of neck of left femur, initial encounter for closed fracture Status: Acute Assessment and Plan: - OR today for surgical management. - Fall Precautions. - Will need PT and OT ordered prior to discharge as determined by Orthopedics. - Post-operative anticoagulation to be managed by Orthopedics as well. - Will treat post-operative pain. - To ECF on discharge. (2) Hypothyroidism: Qualifiers: Hypothyroidism type: unspecified Qualified Code(s): E03.9 - Hypothyroidism, unspecified Code(s): E03.9 - Hypothyroidism, unspecified Status: Chronic Assessment and Plan: - Continue Levothyroxine. - TSH is 4.040 (3) Fall from ground level: Code(s): W18.30XA - Fall on same level, unspecified, initial encounter Status: Acute Assessment and Plan: - Fall Precautions. - PT and OT evaluations post-operatively. (4) Postherpetic neuralgia: Code(s): B02.29 - Other postherpetic nervous system involvement Status: Acute Assessment and Plan: - Treat associated pain for post-herpetic neuralgia. (5) Weight loss, unintentional: Code(s): R63.4 - Abnormal weight loss Status: Acute Assessment and Plan: - TSH was checked and is within normal range. - Continue a regular diet. - Consult dietitian - Supplemental protein on each tray. Time Spent With Patient Time with patient: 25 - 35 minutes Subjective Date/time seen: 05/16/21 07:50 This pt. was examined at the bedside in interval assessment after undergoing a left insitu pinning of a left femoral neck fracture status post GLF. Her pain has been well controlled post-operatively and she has had a favorable post-operative period to this point. She will begin therapy as ordered by Ortho today. This pt. has some disabilities of being legally blind and also being very frail and concerns are that she will need a SNF vs. the Assisted living that she currently lives in, at discharge from my standpoint. Currently she denies any CP, N/V/D, dyspnea. Her pain is primarily from her Shingles lesions. She had some difficulty with PT. Review of Systems Review of Systems: A full 12 point ROS was performed and is otherwise unremarkable with exception of what is noted in HPI. All systems reviewed & are unremarkable except as noted in HPI and below Exam Narrative: General: Thin, cachectic female supine in bed. HEENT: She is wearing glasses. Right cornea is cloudy. There is ptosis present. Neck: Supple. No JVD Respiratory: Lungs are clear to auscultation bilaterally. Cardiovascular: Regular rate and rhythm with S1-S2. Gastrointestinal: Abdomen is soft, non-tender, and Bowel sounds are present in all four quadrants. Skin: Warm and dry. Mild erythema under the right breast and on the right scalp consistent with recent history of shingles. Extremities: No cyanosis, clubbing, or edema. Radial and pedal pulses intact. Musculoskeletal: Mild swelling in the left anterolateral hip. She is also tender to palpation in the same area. She is neurovascularly intact distal to the fracture. Neurological: Alert. Cranial nerves 2-12 are grossly intact. 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 No gross focal deficits to casual conversation. Psychiatric: Appropriate mood. Flat affect. Objective Data Vital Signs Vital Signs: Vital Signs - 24 hr 05/15/21 08:37 05/15/21 08:52 05/15/21 09:09 Temperature 97.3 F L Pulse Rate 75 Respiratory Rate 21 H 20 Blood Pressure 107/59 L Pulse Oximetry 97 98 98 05/15/21 09:50 05/15/21 12:38 05/15/21 18:18 Temperature 98.5 F 99.1 F Pulse Rate 80 71 71 Respiratory R
[2021-05-16] MEDS: SODIUM CHLORIDE 5% OP SOLN 15 ML BTL 1 DROP RIGHT EYE ×2 (09:21→12:54)
[2021-05-16] MEDS: prednisoLONE ACETATE 1% OPHTH 5 ML 1 DROP RIGHT EYE (09:21)
[2021-05-16] MEDS: ENOXAPARIN 40 MG/0.4 ML SYRINGE SUB-Q (09:22)
[2021-05-16] MEDS: OLOPATADINE 0.1% OPHTH SOLN 5 ML BTL 1 DROP EACH EYE ×2 (09:22→17:38)
[2021-05-16] MEDS: TRIAMCINOLONE ACET 0.1% CREAM 15 GM TUBE 1 APPLIC TOPICAL ×2 (09:25→17:40)
--- NOTE | 2021-05-16 11:46 | P.PNAN_ITS ---
Anes - Prog Note Post-Op Date/Time: 05/16/21 11:46 Cardiovascular status: normal Respiratory status: normal Airway patency: baseline Mental status: baseline Post-Op hydration status: normal Vital Signs: Last Vital Signs Temp 97.6 F 05/16/21 06:50 Pulse 66 05/16/21 09:36 Resp 21 H 05/16/21 06:50 BP 97/49 L 05/16/21 09:36 Pulse Ox 97 05/16/21 08:55 Pain Score (VAS): 0 I/O: Intake & Output 05/15/21 05/16/21 05/16/21 23:59 07:59 15:59 Intake Total 150 1150 120 Balance 150 1150 120 Laboratory Tests 05/16/21 05:52 05/16/21 05:52 05/16/21 05/16/21 05:52 05:52 WBC 7.0 RBC 3.48 L Hgb 10.8 L Hct 34.3 L MCV 98.6 D MCH 31.0 MCHC 31.5 L RDW 14.3 Plt Count 164 MPV 9.5 Immature Gran % (Auto) 0.3 Neut % (Auto) 66.9 Lymph % (Auto) 23.0 [place] % (Auto) 8.6 H Eos % (Auto) 0.6 Baso % (Auto) 0.6 Lymph # (Auto) 1.61 [place] # (Auto) 0.6 Eos # (Auto) 0.0 Baso # (Auto) 0.0 Abs Immat Gran (auto) 0.02 Absolute Neuts (auto) 4.7 Absolute Nucleated RBC 0.0 Nucleated RBC % 0.0 Sodium 135 L Potassium 3.9 Chloride 105 Carbon Dioxide 23 Anion Gap 7 L BUN 34 H D Creatinine 0.70 Estim Creat Clear Calc Not Reportable Estimated GFR > 60 Glucose 85 Calcium 8.0 L Magnesium 1.7 Total Bilirubin 1.1 AST 19 ALT 12 Alkaline Phosphatase 53 Total Protein 6.0 L Albumin 3.2 L Patient Feedback: Patient satisfied with anesthetic care.
[2021-05-17 06:00] VITALS: BP 115/53; PULSE 81; RESP 20; TEMP 36.8; O2SAT 96
[2021-05-17] MEDS: LEVOTHYROXINE SODIUM 50 MCG TABLET PO (06:18)
[2021-05-17 06:43] LABS: Alanine Aminotransferase 8 U/L (4-35); Albumin Level 2.8 g/dL (3.5-5.1); Alkaline Phosphatase 53 U/L (38-126); Anion Gap 4 mmol/L (8-16); Aspartate Amino Transferase 21 U/L (14-36); Bilirubin,Total 0.3 mg/dL (0.2-1.3); Blood Urea Nitrogen 30 mg/dL (7-17); Calcium 7.7 mg/dL (8.4-10.2); Carbon Dioxide 24 mmol/L (22-30); Chloride 104 mmol/L (98-107); Estimated Glomerular Filt Rate > 60; Glucose 98 mg/dL (65-110); Magnesium 1.6 mg/dL (1.6-2.3); Potassium 3.7 mmol/L (3.4-5.0); Sodium 132 mmol/L (137-145)
[2021-05-17 06:49] LABS: Basophils Percent Auto 0.6 % (0.2-1.2); Eosinophils Absolute Auto 0.1 K/mm3 (0-0.3); Eosinophils Percent Auto 0.8 % (0-4.4); Hematocrit 31.2 % (37.0-47.0); Hemoglobin 10.4 g/dL (12.0-15.0); Immature Granulocyte Absolute 0.04 K/mm3 (0.00-0.031); Immature Granulocyte Percent A 0.6 % (0-0.5); Lymphocytes Absolute Auto 1.41 K/mm3 (0.9-3.2); Lymphocytes Percent Auto 19.5 % (18.3-44.2); Mean Corpuscular HGB Conc 33.3 g/dl (32-36); Mean Corpuscular Volume 93.1 fl (80-100); Mean Platelet Volume 9.8 fl (7.4-10.4); Monocytes Absolute Auto 0.5 K/mm3 (0.1-0.6); Monocytes Percent Auto 6.4 % (2.6-8.5); Neutrophils Absolute Auto 5.2 K/mm3 (1.3-6.7); Neutrophils Percent Auto 72.1 % (45.5-73.1); Platelet Count Result 176 k/mm3 (150-375); Red Blood Count 3.35 M/mm3 (4.2-5.4); Red Cell Distribution Width 14.3 % (11.5-14.5); White Blood Count 7.2 K/mm3 (4.5-10.0)
[2021-05-17] MEDS: ONDANSETRON INJ 4 MG/2 ML VIAL IV PUSH (07:51)
--- NOTE | 2021-05-17 09:10 | PM.IMPN ---
Progress Note: A&P Assessment and Plan (1) Closed fracture of neck of left femur: Qualifiers: Encounter type: initial encounter Qualified Code(s): S72.002A - Fracture of unspecified part of neck of left femur, initial encounter for closed fracture Code(s): S72.002A - Fracture of unspecified part of neck of left femur, initial encounter for closed fracture Status: Acute Assessment and Plan: - OR today for surgical management. - Fall Precautions. - PT and OT ordered, discharge as determined by Orthopedics. - Post-operative anticoagulation to be managed by Orthopedics as well. - Will treat post-operative pain. - To ECF on discharge. (2) Hypothyroidism: Qualifiers: Hypothyroidism type: unspecified Qualified Code(s): E03.9 - Hypothyroidism, unspecified Code(s): E03.9 - Hypothyroidism, unspecified Status: Chronic Assessment and Plan: - Continue Levothyroxine. - TSH is 4.040 (3) Fall from ground level: Code(s): W18.30XA - Fall on same level, unspecified, initial encounter Status: Acute Assessment and Plan: - Fall Precautions. - PT and OT evaluations post-operatively. (4) Postherpetic neuralgia: Code(s): B02.29 - Other postherpetic nervous system involvement Status: Acute Assessment and Plan: - Treat associated pain for post-herpetic neuralgia. (5) Weight loss, unintentional: Code(s): R63.4 - Abnormal weight loss Status: Acute Assessment and Plan: - TSH was checked and is within normal range. - Continue a regular diet. - Consult dietitian - Supplemental protein on each tray. (6) Severe protein-calorie malnutrition: Code(s): E43 - Unspecified severe protein-calorie malnutrition Status: Acute Assessment and Plan: Albumin 2.8, to dietitian has been consulted for further evaluation. Subjective Date/time seen: 05/17/21 09:10 Patient is alert to person. She is disoriented to time and place. She has difficulty hearing and seen. She appears very anxious at bedside. She is a frail older female. Surgical site appears clean dry and intact. She denies any acute pain. Pending discharge to a fpc facility. No acute events during the night. Review of Systems Review of Systems: All systems reviewed & are unremarkable except as noted in HPI and below Exam Narrative: General: Thin, cachectic female supine in bed. HEENT: She is wearing glasses. Right cornea is cloudy. There is ptosis present. Neck: Supple. No JVD Respiratory: Lungs are clear to auscultation bilaterally. Cardiovascular: Regular rate and rhythm with S1-S2. Gastrointestinal: Abdomen is soft, non-tender, and Bowel sounds are present in all four quadrants. Skin: Warm and dry. Mild erythema under the right breast and on the right scalp consistent with recent history of shingles. Extremities: No cyanosis, clubbing, or edema. Radial and pedal pulses intact. Musculoskeletal: Mild swelling in the left anterolateral hip. She is also tender to palpation in the same area. She is neurovascularly intact distal to the fracture. Neurological: Alert. Cranial nerves 2-12 are grossly intact. 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 No gross focal deficits to casual conversation. Psychiatric: Appropriate mood. Flat affect. Objective Data Vital Signs Vital Signs: Vital Signs - 24 hr 05/16/21 09:36 05/16/21 14:18 05/16/21 18:26 Temperature 98.6 F 97.7 F Pulse Rate 66 60 68 Respiratory Rate 20 20 Blood Pressure 97/49 L 110/50 L 111/56 L Pulse Oximetry 100 98 05/16/21 19:43 05/16/21 22:00 05/17/21 06:00 Temperature 97.5 F L 98.3 F Pulse Rate 74 81 Respiratory Rate 18 20 Blood Pressure 126/57 L 115/53 L Pulse Oximetry 98 99 96 Intake/Output Intake/Output: Intake & Output 05/14/21 05/15/21 05/16/21 05/17/21 23:59 23:59 23:59 23:59 Intake Total 150 2870 Balance 150 2870 Meds/Results M
[2021-05-17 10:00] VITALS: BP 96/72; PULSE 76; RESP 18; TEMP 36.3; O2SAT 94
[2021-05-17] MEDS: ENOXAPARIN 40 MG/0.4 ML SYRINGE SUB-Q (10:05)
[2021-05-17] MEDS: ERGOCALCIFEROL 50,000 UNIT CAPSULE 50000 UNITS PO (10:05)
[2021-05-17] MEDS: OLOPATADINE 0.1% OPHTH SOLN 5 ML BTL 1 DROP EACH EYE (10:08)
[2021-05-17] MEDS: prednisoLONE ACETATE 1% OPHTH 5 ML 1 DROP RIGHT EYE (10:08)
[2021-05-17] MEDS: TRIAMCINOLONE ACET 0.1% CREAM 15 GM TUBE 1 APPLIC TOPICAL (10:08)
[2021-05-17] MEDS: SODIUM CHLORIDE 5% OP SOLN 15 ML BTL 1 DROP RIGHT EYE (10:08)
[2021-05-17 11:58] LABS: EDCOVIDSCREEN Negative (Negative)
--- NOTE | 2021-05-17 13:22 | PM.DS ---
DS: Admitting Diagnosis Discharge Date 05/17/2021 Admitting Diagnosis Him closed fracture of neck of left femur Hypothyroidism DS: Discharge Diagnosis Discharge Diagnosis (1) Closed fracture of neck of left femur: Qualifiers: Encounter type: initial encounter Qualified Code(s): S72.002A - Fracture of unspecified part of neck of left femur, initial encounter for closed fracture Code(s): S72.002A - Fracture of unspecified part of neck of left femur, initial encounter for closed fracture Status: Acute Assessment and Plan: - OR today for surgical management. - Fall Precautions. - PT and OT ordered, discharge as determined by Orthopedics. - Post-operative anticoagulation to be managed by Orthopedics as well. - Will treat post-operative pain. - To [facility] on discharge. (2) Hypothyroidism: Qualifiers: Hypothyroidism type: unspecified Qualified Code(s): E03.9 - Hypothyroidism, unspecified Code(s): E03.9 - Hypothyroidism, unspecified Status: Chronic Assessment and Plan: - Continue Levothyroxine. - TSH is 4.040 (3) Fall from ground level: Code(s): W18.30XA - Fall on same level, unspecified, initial encounter Status: Acute Assessment and Plan: - Fall Precautions. - PT and OT evaluations post-operatively. (4) Postherpetic neuralgia: Code(s): B02.29 - Other postherpetic nervous system involvement Status: Acute Assessment and Plan: - Treat associated pain for post-herpetic neuralgia. (5) Weight loss, unintentional: Code(s): R63.4 - Abnormal weight loss Status: Acute Assessment and Plan: - TSH was checked and is within normal range. - Continue a regular diet. - Consult dietitian - Supplemental protein on each tray. (6) Severe protein-calorie malnutrition: Code(s): E43 - Unspecified severe protein-calorie malnutrition Status: Acute Assessment and Plan: Albumin 2.8, to dietitian has been consulted for further evaluation. DS: Summary Hospital Course Reason for hospitalization: Closed fracture of neck of left femur Hospital Course: The patient is an 85-year-old female with past medical history of stroke, hypothyroidism and glaucoma. She presented to the emergency department from [facility] for evaluation of left hip pain after a fall. Patient apparently was tangled up in her oversized shoes and fell to the ground. Which resulted her landing on her left hip. She was in median significant aching in muscle spasm pain to her left hip was unable to get up independently. Apparently she was unable to call for help and staff found her on the ground during the rounds on the day of admission. Patient also believes that she was struck her head, she denied loss of consciousness. Labs and imaging were obtained in the emergency department which did reveal a mildly impacted left subcapital femoral neck fracture, CT head negative. Labs were significant for ID BC of 9.8, hemoglobin 11.4, hematocrit 33.8 and platelet 197, sodium 132, potassium 3.6, BUN 14 and creatinine 0.6. Normal LFTs. Orthopedic was consulted from the emergency department for further evaluation of the left subcapital femoral neck fracture. At that time the patient denied any specific complaints and she was admitted to the medical unit for further management by Orthopedic. The patient did have surgery performed on 05/15/2021-see op note. Patient was managed with oral narcotics and Tylenol. Spoke with orthopedic on the day of discharge and patient is okay from their standpoint to [place]. She will be discharged with 325 mg aspirin and follow up [facility] for further management. No acute concerns at the time of discharge. Status at Discharge Cognitive/behavioral status at discharge: Alert and oriented Functional status at discharge: independent ambulation Overall status at discharge: patient is progressing back to baseline Time Spe
[2021-05-17 14:35] VITALS: O2SAT 98
== END 2021-05-17 14:58 | DRG 480 ==
LOC: ANHED 17:05 → ANH2MED 17:39
PROVIDERS: Nurse Practitioner Adult Health; Physician Assistant; Specialist; Admitting Provider Internal Medicine; Emergency Provider Emergency Medicine; PCP Internal Medicine; Visit Provider Nurse Practitioner Family
PROC: 0QH734Z Insertion of Internal Fixation Device into Left Upper Femur, Percutaneous Approach (ICD-10-PCS; principal; 2021-05-15 17:00)
DX: S72.012A Unspecified intracapsular fracture of left femur, initial encounter for closed fracture (principal); E43 Unspecified severe protein-calorie malnutrition; Z68.1 Body mass index [BMI] 19.9 or less, adult; R64 Cachexia; B02.29 Other postherpetic nervous system involvement; W18.30XA Fall on same level, unspecified, initial encounter; Z20.822 Contact with and (suspected) exposure to COVID-19; E03.9 Hypothyroidism, unspecified; H40.9 Unspecified glaucoma; Z86.73 Personal history of transient ischemic attack (TIA), and cerebral infarction without residual deficits; Z94.7 Corneal transplant status; Z90.710 Acquired absence of both cervix and uterus
CPT/HCPCS: 36415; 70450; 71045; 73502; 80048; 80053; 83735; 84439; 84443; 84480; 85025; 85027; 85610; 87426; 93005; 96374; 96376; 97110; 97161; 97166; 97530; 97535; 99285; A9270; C1713; C9803; G0378; J0690; J1650; J1885; J2405; J2704; J3010; J7030; J7120

== ENCOUNTER 2021-06-14 00:14 | Inpatient (IN) | payer MEDICARE, MEDICAID, SELFPAY ==
[2021-06-14] VITALS (22 sets, daily range): BP systolic 92–125; BP diastolic 41–69; PULSE 78–115; RESP 14–22; TEMP 36.1–36.9; O2SAT 93–100; BMI 14.1
--- NOTE | 2021-06-14 00:26 | ECG_ITS ---
Measurements Intervals [place] Rate: 95 P: 73 WI: 178 QRS: -41 QRSD: 83 T: 83 QT: 336 QTc: 424 Interpretive Statements SINUS RHYTHM LEFT AXIS DEVIATION [QRS AXIS < -30] POOR R-WAVE PROGRESSION, CANNOT RULE OUT OLD SEPTAL MYOCARDIAL INFARCTION COMPARED TO ECG 05/14/2021 16:52:32, NO SIGNIFICANT CHANGE Electronically Signed On 06-14-2021 13:43:40 CDT by Chasidy Thomas M.D.
[2021-06-14 00:36] LABS: Basophils Percent Auto 0.2 % (0.2-1.2); Eosinophils Absolute Auto 0.1 K/mm3 (0-0.3); Eosinophils Percent Auto 1.3 % (0-4.4); Immature Granulocyte Absolute 0.15 K/mm3 (0.00-0.031); Immature Granulocyte Percent A 1.5 % (0-0.5); Lymphocytes Absolute Auto 3.15 K/mm3 (0.9-3.2); Lymphocytes Percent Auto 31.3 % (18.3-44.2); Mean Corpuscular HGB Conc 29.4 g/dl (32-36); Mean Corpuscular Hemoglobin 33.3 pg (26-34); Mean Corpuscular Volume 113.3 fl (80-100); Mean Platelet Volume 9.9 fl (7.4-10.4); Monocytes Absolute Auto 0.6 K/mm3 (0.1-0.6); Monocytes Percent Auto 5.7 % (2.6-8.5); Neutrophils Absolute Auto 6.1 K/mm3 (1.3-6.7); Platelet Count Result 271 k/mm3 (150-375); Red Cell Distribution Width 21.2 % (11.5-14.5); White Blood Count 10.1 K/mm3 (4.5-10.0)
--- NOTE | 2021-06-14 00:36 | ED.RECABL ---
HPI - Recheck/Abnormal Lab/Rx General Chief Complaint: Recheck/Abnormal Lab/Rx Stated Complaint: LOW H & H Time Seen by Provider: 06/14/21 00:26 Source: patient and EMS Mode of arrival: EMS Limitations: no limitations History of Present Illness HPI narrative: Pt sent in for a hemoglobin of 4.4 on labs from the [facility]. Pt also sounds like she had a brief unresponsive spell tonight. Pt denies melena or CP. Related Data Home Medications Medication Instructions Recorded Confirmed hard optical lens manufacturing tech #30 ml 12/26/18 05/17/21 light mineral oil 1 %-mineral oil 1 drop EACH EYE PRN PRN 12/26/18 05/17/21 4.5 % eye drops prednisolone acetate 1 % eye 1 drop RIGHT EYE DAILY 12/26/18 05/17/21 drops,suspension sodium chloride 5 % eye drops 1 drop RIGHT EYE TID 12/30/18 05/17/21 olopatadine 0.1 % eye drops 1 drp EACH EYE BID 08/29/20 05/17/21 Xiidra 1 drp RIGHT EYE BID 05/14/21 05/17/21 artificial tears solution 2 drp OPHTHALMIC (EYE) QID PRN 05/14/21 05/17/21 ibandronate [Boniva] 150 mg PO MONTHLY 05/14/21 05/17/21 aspirin 325 mg PO DAILY 05/17/21 05/17/21 Allergies Allergy/AdvReac Type Severity Reaction Status Date / Time codeine Allergy Severe Hives Verified 05/15/21 16:21 Iodinated Contrast Media Allergy Unknown hives Verified 05/15/21 16:21 lisinopril Allergy Unknown hives Verified 05/15/21 16:21 Penicillins Allergy Unknown rash Verified 05/15/21 16:21 Sulfa (Sulfonamide Allergy Unknown rash Verified 05/15/21 16:21 Antibiotics) Contrast Media Allergy Unknown hives Uncoded 05/15/21 16:21 Review of Systems Review of Systems: All systems reviewed & are unremarkable except as noted in HPI and below PMFSH Past Medical History Medical History Cerebrovascular disease Degenerative disc disease Glaucoma Hypothyroidism Shingles Spastic dysphonia Surgical History Surgical History History of corneal transplant History of eye prosthesis Left History of hysterectomy for benign disease Family History Family History Father Patient's father is Family history of emphysema Mother Family history of cardiovascular disease Social History Social History Social History: Surrogate decision maker: Macarena Celestin, friend. Code status: Full code. Smoking status: Never smoker Second hand tobacco smoke exposure: No Alcohol intake: never Substance use: never Substance use type: does not use Additional living arrangements comments: Resides at [facility]. . She has a son but they are estranged apparently. Spiritual care concerns: No Exam Const: General: no acute distress Orientation/consciousness: patient oriented x3 Eyes: Conjunctivae: conjunctival abnormality (pale) Resp: Effort & Inspection: normal respiratory effort Auscultation: clear to auscultation bilaterally Cardio: Rate: regular rate Rhythm: regular rhythm GI: GI Palp: Yes Soft to palpation and Yes Tenderness to palpation present (GI) (slight epigastric tenderness) Auscultation: normal bowel sounds Rectal Exam: heme positive stool Skin: General skin exam: pallor Neuro: General: patient oriented x3, moves all extremities, no meningeal signs and no focal motor deficits Extrem: General: no clubbing, cyanosis or edema Psych: Appearance: grossly normal Mental Status: mental status grossly normal Thought content: Yes Normal thought content present Course Vital Signs Vital signs: Vital Signs Temperature 97 F L 06/14/21 00:19 Pulse Rate 93 06/14/21 00:19 Respiratory Rate 18 06/14/21 00:19 Blood Pressure 120/49 L 06/14/21 00:19 Pulse Oximetry 93 06/14/21 00:19 Temperature 98.3 F 06/14/21 03:07 Pulse Rate 97 06/14/21 03:07 Respiratory Rate 16 06/14/21 03
[2021-06-14 00:43] LABS: Hematocrit 13.6 % (37.0-47.0)
[2021-06-14 00:44] LABS: Anisocytosis 2+ (NORMAL); Hypochromasia 2+ (NORMAL); Microcytosis 2+ (NORMAL); Platelet Estimate Adequate (Adequate)
[2021-06-14 00:47] LABS: Alanine Aminotransferase 10 U/L (4-35); Albumin Level 2.8 g/dL (3.5-5.1); Alkaline Phosphatase 42 U/L (38-126); Anion Gap 5 mmol/L (8-16); Aspartate Amino Transferase 19 U/L (14-36); Bilirubin,Total < 0.1 mg/dL (0.2-1.3); Blood Urea Nitrogen 48 mg/dL (7-17); Carbon Dioxide 25 mmol/L (22-30); Chloride 103 mmol/L (98-107); Estimated CRCL calculation 44 ml/min; Estimated Glomerular Filt Rate > 60; Glucose 110 mg/dL (65-110); Sodium 133 mmol/L (137-145)
--- NOTE | 2021-06-14 01:06 | PM.IMHP ---
H&P: HPI History of Present Illness Date/Time: 06/14/21 01:06 Chief Complaint: Abnormal lab value. Narrative: This is a 75-year-old female who resides at group home, patient is blind, left hip fracture, unable to bear weighed, patient uses wheelchair to get around. Patient was brought to the emergency room for evaluation after lab work routinely drawn showed a hemoglobin of 4. Patient can not really give any history due to her blindness she is unable to see if she has had any melena or bright red blood per rectum. States that she eats well, denies any fevers, any rigors ,any chills, any cough, any sputum production. Preliminary workup was significant for CBC with a hemoglobin of 4, MCV 113. Patient has been admitted for further evaluation management and treatment. Review of Systems Review of Systems: ROS unobtainable: Yes unobtainable due to medical condition (Blindness) PMF Past Medical History Medical History Cerebrovascular disease Degenerative disc disease Glaucoma Hypothyroidism Shingles Spastic dysphonia Surgical History Surgical History History of corneal transplant History of eye prosthesis Left History of hysterectomy for benign disease Family History Family History Father Patient's father is Family history of emphysema Mother Family history of cardiovascular disease Social History Social History Social History: Surrogate decision maker: Macarena Celestin, friend. Code status: Full code. Smoking status: Never smoker Second hand tobacco smoke exposure: No Alcohol intake: never Substance use: never Substance use type: does not use Additional living arrangements comments: Resides at [facility]. . She has a son but they are estranged apparently. Spiritual care concerns: No Meds Home Medications and Allergies Home Medications Medication Instructions Recorded Confirmed Type hard contact lens manufacturer #30 ml 12/26/18 05/17/21 History light mineral oil 1 %-mineral oil 1 drop EACH EYE PRN PRN 12/26/18 05/17/21 History 4.5 % eye drops prednisolone acetate 1 % eye 1 drop RIGHT EYE DAILY 12/26/18 05/17/21 History drops,suspension sodium chloride 5 % eye drops 1 drop RIGHT EYE TID 12/30/18 05/17/21 History olopatadine 0.1 % eye drops 1 drp EACH EYE BID 08/29/20 05/17/21 History docusate sodium 100 mg tablet 200 mg PO .QHS #60 tablet 10/27/20 05/17/21 Rx polyethylene glycol 3350 17 gram 17 g PO DAILY #30 ea 10/27/20 05/17/21 Rx oral powder packet magnesium hydroxide 1,200 mg 1,200 mg PO QHS PRN #90 tablet 11/02/20 05/17/21 Rx chewable tablet valacyclovir 1 gram tablet 1,000 mg PO TID #21 tablet 03/21/21 05/17/21 Rx levothyroxine 50 mcg tablet 50 mcg PO DAILY #30 tablet 04/10/21 05/17/21 Rx triamcinolone acetonide 0.1 % 1 applic TOPICAL BID #30 g 04/10/21 05/17/21 Rx topical cream Xiidra 1 drp RIGHT EYE BID 05/14/21 05/17/21 History artificial tears solution 2 drp OPHTHALMIC (EYE) QID PRN 05/14/21 05/17/21 History ibandronate [Boniva] 150 mg PO MONTHLY 05/14/21 05/17/21 History ergocalciferol (vitamin D2) 1,250 50,000 unit PO .COMPLEX #6 cap 05/15/21 05/17/21 Rx mcg (50,000 unit) capsule aspirin 325 mg PO DAILY 05/17/21 05/17/21 History acetaminophen [Mapap 650 mg PO Q4H PRN #0 tablet 05/29/21 Rx (acetaminophen)] lidocaine [Lidocaine Pain Relief] 3 patch TRANSDERMAL DAILY #0 ea 05/29/21 Rx mirtazapine [Remeron] 15 mg PO HS #30 tablet 05/29/21 Rx saliva stimulant comb. no.3 1 spray PO PRN PRN #0 ml 05/29/21 Rx [Biotene Moisturizing Mouth] Allergies Allergy/AdvReac Type Severity Reaction Status Date / Time codeine Allergy Severe Hives Verified 05/15/21 16:21 Iodinated Contrast Media Allergy Unknown hives Verifie
[2021-06-14 03:27] LABS: SARS-CoV-2 RNA PCR Negative
[2021-06-14] MEDS: SODIUM CHLORIDE 0.9% IV 100 ML (03:33)
[2021-06-14] MEDS: TUBING, BLOOD PLUM PUMP TUBING 1 EACH XX (03:33)
--- NOTE | 2021-06-14 03:42 | ADMGEN ---
This patient, Marlene Mina, was admitted to IMU Room 205-02 at 0342. Patient/family oriented to hospital policies and general routines including ID bracelet, bed and alarms, visiting hours, pain management, procedures, bathroom and other care routines, personal items, smoking policy, room service/diet, and visiting hours. Information on how to activate the Rapid Response Team has been discussed. Patient/Family are encouraged to report perceived risks to care and to ask questions if they do not understand what they are told or what they should do.
[2021-06-14 05:39] LABS: Transferrin 181 mg/dL (206-381)
[2021-06-14 06:10] LABS: Iron 94 ug/dL (37-170)
[2021-06-14] MEDS: SODIUM CHLORIDE 0.9% IV 250 ML 30 ML IV CONT (09:30)
[2021-06-14 09:39] LABS: Hematocrit 24.1 % (37.0-47.0)
--- NOTE | 2021-06-14 14:17 | WPDGICN ---
Assessment and Plan Assessment and plan (1) Anemia: Qualifiers: Anemia type: other cause Code(s): D64.9 - Anemia, unspecified Status: Acute Assessment and Plan: to her knowledge she has never been anemic in the past. Her hemoglobin was 4. Now after transfusion, it is up to 8. As noted above the was 11 just 1 month ago (2) GI (gastrointestinal bleed): Qualifiers: GI bleed type/associated pathology: unspecified gastrointestinal hemorrhage type Qualified Code(s): K92.2 - Gastrointestinal hemorrhage, unspecified Code(s): K92.2 - Gastrointestinal hemorrhage, unspecified Status: Acute Assessment and Plan: she has had no abdominal pain. Because of her visual impairment she cannot tell if her stools have been dark. They were however Hemoccult positive in the emergency room. Consequently of gastrointestinal bleed is most likely source of her anemia She will be scheduled for EGD and colonoscopy to be done tomorrow. I discussed the procedure prep with her. She is not looking for 2 drinking the laxatives but states that she will do that (3) Postherpetic neuralgia: Code(s): B02.29 - Other postherpetic nervous system involvement Status: Acute Assessment and Plan: she is quite concerned about the persistent pain which has been present now for almost 2 months. Visually, I did not see of herpetic rash anteriorly but she does have hypersensitivity to palpation in the right thorax towards the epigastric area (4) Underweight: Code(s): R63.6 - Underweight Status: Acute Assessment and Plan: she states that her weight has been declining over the last several years due to the poor quality of food at her half-way. GI Consult Note Consult date/time: 06/14/21 14:17 HPI: Marlene Mina is a 75 year old female Who was admitted when she was found have a hemoglobin of 4. She is currently in a rehabilitation center. She recently had sustained a fracture of her hip. Last month her hemoglobin was 11.3 and just 2 weeks ago, after her hip surgery. She was 9.8. She is legally blind and therefore does not see her stools well, but she is not aware of having had blood in her stool. She has not been told that her stools look bloody but Hemoccult was positive when checked in the emergency room. She states that she has lost weight because her appetite is not good and more so because of food that she has been served for the last several years at [facility] has deteriorated in quality. She then digressed to tell me about the different administrators, 3 in the last 8 years and also About turnover the kitchen staff. She developed herpes zoster on her right thorax in April and she states that the pain is as bad as ever. She is hoping to get some answers about that while she is here. she states that she has never had a colonoscopy. She states that she has had no vomiting. She is not nauseated but as I mentioned above she has a poor appetite. She denies dysphagia or heartburn. She is not aware of any change in her bowels. She has pain in the epigastric area , Very sensitive to the touch,but this is the terminus of the pain that she has from her back due to shingles. Review of Systems Review of Systems: All systems reviewed & are unremarkable except as noted in HPI and below PMFSH Past Medical History Medical History Cerebrovascular disease Degenerative disc disease Glaucoma Hypothyroidism Shingles Spastic dysphonia Surgical History Surgical History History of corneal transplant History of eye prosthesis Left History of hysterectomy for benign disease Family History Family History Father Patient's father is Family history of emphysema Mother Family histo
--- NOTE | 2021-06-14 14:43 | PCNSR ---
On 06/14/21, the student, Ester Wheat, provided care and completed [facility] documentation on this patient. I have reviewed the student's documentation and agree with the findings.
[2021-06-14] MEDS: BISACODYL 5 MG TABLET EC 10 MG PO (16:30)
[2021-06-14] MEDS: polyethylene glycoL 3350 238 GM BOTTLE PO (16:38)
[2021-06-15] VITALS (22 sets, daily range): BP systolic 106–135; BP diastolic 46–62; PULSE 68–85; RESP 12–23; TEMP 36.1–37.3; O2SAT 97–100
[2021-06-15 05:09] LABS: Mean Corpuscular HGB Conc 32.7 g/dl (32-36); Mean Corpuscular Hemoglobin 33.3 pg (26-34); Mean Platelet Volume 9.8 fl (7.4-10.4); Platelet Count Result 197 k/mm3 (150-375); Red Blood Count 1.98 M/mm3 (4.2-5.4); Red Cell Distribution Width 18.8 % (11.5-14.5); White Blood Count 11.6 K/mm3 (4.5-10.0)
[2021-06-15 05:21] LABS: Hemoglobin 6.6 g/dL (12.0-15.0)
[2021-06-15 05:22] LABS: Hematocrit 20.2 % (37.0-47.0)
[2021-06-15 05:23] LABS: Anion Gap 2 mmol/L (8-16); Blood Urea Nitrogen 40 mg/dL (7-17); Calcium 7.6 mg/dL (8.4-10.2); Carbon Dioxide 26 mmol/L (22-30); Chloride 105 mmol/L (98-107); Estimated CRCL calculation 44 ml/min; Estimated Glomerular Filt Rate > 60; Glucose 128 mg/dL (65-110); Magnesium 1.7 mg/dL (1.6-2.3); Potassium 3.8 mmol/L (3.4-5.0); Sodium 133 mmol/L (137-145)
[2021-06-15] MEDS: MAGNESIUM CITRATE 300 ML BTL 180 ML PO (06:24)
[2021-06-15] MEDS: SODIUM CHLORIDE 0.9% IV 250 ML 30 ML IV CONT (08:25)
--- NOTE | 2021-06-15 09:08 | PM.IMPN ---
Progress Note: A&P Additional Plan 75-year-old female who resides at [facility], patient is blind with a left hip fracture, unable to bear weight and uses a wheelchair to get around. Patient was brought to the emergency room for evaluation after lab work routinely drawn showed a hemoglobin of 4. Patient can not really give any history due to her blindness she is unable to see if she has had any melena or bright red blood per rectum. States that she eats well, denies any fevers, any rigors ,any chills, any cough, any sputum production. Preliminary workup was significant for CBC with a hemoglobin of 4, MCV 113. Patient was admitted for further evaluation management and treatment. #Severe acute anemia: -acute blood loss anemia. -Hb of 4.0 on admission, she was transfused with 2 units of PRBC on 06/14/21 with improvement of her Hb to 8.0 -today her Hb is down to 6.6 -normal iron, ferritin and B12 levels. -transfused with 1 unit of PRBC today with post transfusion Hb of 8.6 -GI is following and they plan to an EGD and colonoscopy today. -follow up CBC tomorrow. #Chronic hyponatremia: -Na stable around 133. #Severe protein-calorie malnutrition: Code(s): E43 - Unspecified severe protein-calorie malnutrition Status: Acute Assessment and Plan: #Closed fracture of neck of left femur: Qualifiers: Encounter type: initial encounter Qualified Code(s): S72.002A - Fracture of unspecified part of neck of left femur, initial encounter for closed fracture Code(s): S72.002A - Fracture of unspecified part of neck of left femur, initial encounter for closed fracture Status: Acute Assessment and Plan: PATIENT IS WHEELCHAIR-BOUND #Postherpetic neuralgia: Code(s): B02.29 - Other postherpetic nervous system involvement Status: Acute Assessment and Plan: SUPPORTIVE CARE #Blindness: Code(s): H54.7 - Unspecified visual loss Status: Acute Assessment and Plan: -fall precautions. Time Spent With Patient Time with patient: 15 - 25 minutes Subjective Date/time seen: 06/15/21 09:08 Exam Const: General: cooperative, comfortable and no acute distress Resp: Effort & Inspection: normal respiratory effort and able to speak in complete sentences Cardio: Rate: regular rate Rhythm: regular rhythm Heart sounds: S1 normal heart sound present and S2 normal heart sound present GI: Inspection: normal to inspection GI Palp: No abdominal tenderness Auscultation: normal bowel sounds Skin: General skin exam: normal color Extrem: General: normal to inspection Objective Data Vital Signs Vital Signs: Vital Signs - 24 hr 06/14/21 10:00 06/14/21 12:00 06/14/21 14:00 Temperature 97.5 F L Pulse Rate 79 92 78 Respiratory Rate 18 Blood Pressure 122/52 L Pulse Oximetry 100 06/14/21 16:00 06/14/21 19:53 06/14/21 20:00 Temperature 97.7 F 97.5 F L Pulse Rate 89 115 H 86 Respiratory Rate 20 20 Blood Pressure 110/54 L 122/55 L Pulse Oximetry 98 97 06/14/21 22:00 06/15/21 00:00 06/15/21 02:00 Temperature 96.9 F L Pulse Rate 85 77 80 Respiratory Rate 18 Blood Pressure 116/46 L Pulse Oximetry 100 06/15/21 02:51 06/15/21 04:00 06/15/21 06:00 Temperature 97.6 F Pulse Rate 82 75 Respiratory Rate 18 Blood Pressure 118/47 L Pulse Oximetry 97 98 06/15/21 08:00 06/15/21 08:08 06/15/21 08:35 Temperature 98.2 F 98.2 F 97.9 F Pulse Rate 80 80 85 Respiratory Rate 22 H 18 18 Blood Pressure 115/48 L 115/48 L 121/55 L Pulse Oximetry 100 100 100 Intake/Output Intake/Output: Intake & Output 06/12/21 06/13/21 06/14/21 06/15/21 23:59 23:59 23:59 23:59 Intake Total 1675 100 Output Total 1800 Balance -125 100 Meds/Results Medications: Active Medications Generic Name Dose Route Start Last Admin Trade Name Freq PRN Reason Stop Dose Admin Acetaminophen 1,000 mg in 100 mls @ 400 mls/hr 06/14/21
[2021-06-15 11:51] LABS: Hematocrit 26.1 % (37.0-47.0); Hemoglobin 8.6 g/dL (12.0-15.0)
--- NOTE | 2021-06-15 12:18 | WPDANESEPPF ---
Anes - Initial Pre Proc Eval Procedure: Operation Date: 06/15/21 13:45 Proposed Procedures p Esophagogastroduodenoscopy & Colonoscopy - Mc Dyer MD Date/Time: 06/15/21 12:18 Surgeon: Corby Ruffin MD Pre Op Diagnosis: gi bleed Patient Data Age: 75 Gender: F Height: 1.52 m Weight: 34.7 kg Last Vital Signs Temp 36.4 C 06/15/21 12:00 Pulse 75 06/15/21 12:00 Resp 20 06/15/21 12:00 BP 127/51 L 06/15/21 12:00 Pulse Ox 100 06/15/21 12:00 Allergies Allergy/AdvReac Type Severity Reaction Status Date / Time codeine Allergy Severe Hives Verified 06/15/21 12:48 Iodinated Contrast Media Allergy Unknown hives Verified 06/15/21 12:48 lisinopril Allergy Unknown hives Verified 06/15/21 12:48 Penicillins Allergy Unknown rash Verified 06/15/21 12:48 Sulfa (Sulfonamide Allergy Unknown rash Verified 06/15/21 12:48 Antibiotics) Contrast Media Allergy Unknown hives Uncoded 06/15/21 12:48 Home Medications Medication Instructions Recorded Confirmed Type docusate sodium 100 mg tablet 200 mg PO .QHS #60 tablet 10/27/20 06/14/21 Rx polyethylene glycol 3350 17 gram 17 g PO DAILY #30 ea 10/27/20 06/14/21 Rx oral powder packet magnesium hydroxide 1,200 mg 1,200 mg PO QHS PRN #90 tablet 11/02/20 06/14/21 Rx chewable tablet levothyroxine 50 mcg tablet 50 mcg PO DAILY #30 tablet 04/10/21 06/14/21 Rx triamcinolone acetonide 0.1 % 1 applic TOPICAL BID #30 g 04/10/21 06/14/21 Rx topical cream Xiidra 1 drp RIGHT EYE BID 05/14/21 06/14/21 History artificial tears solution 2 drp OPHTHALMIC (EYE) QID PRN 05/14/21 06/14/21 History ibandronate [Boniva] 150 mg PO MONTHLY 05/14/21 06/14/21 History ergocalciferol (vitamin D2) 1,250 50,000 unit PO .COMPLEX #6 cap 05/15/21 06/14/21 Rx mcg (50,000 unit) capsule aspirin 325 mg PO DAILY 05/17/21 06/14/21 History acetaminophen [Mapap 650 mg PO Q4H PRN #0 tablet 05/29/21 06/14/21 Rx (acetaminophen)] lidocaine [Lidocaine Pain Relief] 3 patch TRANSDERMAL DAILY #0 ea 05/29/21 06/14/21 Rx mirtazapine [Remeron] 15 mg PO HS #30 tablet 05/29/21 06/14/21 Rx saliva stimulant comb. no.3 1 spray PO PRN PRN #0 ml 05/29/21 06/14/21 Rx [Biotene Moisturizing Mouth] bisacodyl 10 mg RECTAL DAILY PRN 06/14/21 06/14/21 History folic acid 0.4 mg PO DAILY 06/14/21 06/14/21 History gabapentin 100 mg PO TID 06/14/21 06/14/21 History magnesium citrate 300 ml PO DAILY PRN 06/14/21 06/14/21 History magnesium hydroxide [Milk of 400 mg PO HS PRN 06/14/21 06/14/21 History Magnesia] sodium phosphates [Fleet Enema] 197 ml RECTAL ONCE PRN 06/14/21 06/14/21 History Laboratory Tests 06/14/21 06/15/21 06/15/21 00:28 04:43 04:43 WBC 11.6 K/mm3 H K/mm3 (4.5-10.0) RBC 1.98 M/mm3 L M/mm3 (4.2-5.4) Hgb 6.6 g/dL L* g/dL (12.0-15.0) Hct 20.2 % L* % (37.0-47.0) MCV 102.0 fl H D fl (80-100) MCH 33.3 pg pg (26-34) MCHC 32.7 g/dl g/dl (32-36) RDW 18.8 % H % (11.5-14.5) Plt Count 197 k/mm3 k/mm3 (150-375) MPV 9.8 fl fl (7.4-10.4) Sodium 133 mmol/L L mmol/L (137-145) Potassium 3.8 mmol/L mmol/L (3.4-5.0) Chloride 105 mmol/L mmol/L (98-107) Carbon Dioxide 26 mmol/L mmol/L (22-30) Anion Gap 2 mmol/L L mmol/L (8-16) BUN 40 mg/dL H mg/dL (7-17) Creatinine 0.50 mg/dL L mg/dL (0.7-1.0) Estim Creat Clear Calc 44 ml/min ml/min Estimated GFR > 60 (59 - ) Glucose 128 mg/dL H mg/dL (65-110) Calcium 7.6 mg/dL L mg/dL (8.4-10.2) Magnesium 1.7 mg/dL mg/dL (1.6-2.3) Blood Type A Negative Antibody Screen Negative Crossmatch See Detail 06/15/21 11:44 WBC RBC Hgb 8.6 g/dL L g/dL (12.0-15.0) Hct 26.1 % L % (37.0-47.0) MCV MCH MCHC RDW Plt Count MP
[2021-06-15] MEDS: LACTATED RINGERS 1,000 ML 150 ML IV CONT (12:48)
[2021-06-15] MEDS: MAGNESIUM SULF 4 GM/WATER100ML 4 GM/100 ML BAG IVPB (15:56)
[2021-06-15] MEDS: PANTOPRAZOLE SODIUM IV 40 MG VIAL IV PUSH ×2 (15:56→20:10)
[2021-06-15 18:12] LABS: Hematocrit 25.3 % (37.0-47.0); Hemoglobin 8.5 g/dL (12.0-15.0)
[2021-06-15 18:23] LABS: INR 1.2; Prothrombin Time 14.6 Seconds (11.1-14.7)
[2021-06-16] VITALS (20 sets, daily range): BP systolic 91–120; BP diastolic 40–57; PULSE 65–80; RESP 12–20; TEMP 36.2–36.7; O2SAT 97–100
[2021-06-16 05:09] LABS: Basophils Percent Auto 0.4 % (0.2-1.2); Eosinophils Absolute Auto 0.1 K/mm3 (0-0.3); Hematocrit 22.7 % (37.0-47.0); Hemoglobin 7.5 g/dL (12.0-15.0); Immature Granulocyte Absolute 0.04 K/mm3 (0.00-0.031); Immature Granulocyte Percent A 0.8 % (0-0.5); Lymphocytes Absolute Auto 1.29 K/mm3 (0.9-3.2); Lymphocytes Percent Auto 25.2 % (18.3-44.2); Mean Corpuscular Hemoglobin 32.5 pg (26-34); Mean Corpuscular Volume 98.3 fl (80-100); Mean Platelet Volume 9.7 fl (7.4-10.4); Monocytes Absolute Auto 0.3 K/mm3 (0.1-0.6); Monocytes Percent Auto 6.6 % (2.6-8.5); Neutrophils Absolute Auto 3.3 K/mm3 (1.3-6.7); Platelet Count Result 183 k/mm3 (150-375); Red Blood Count 2.31 M/mm3 (4.2-5.4); Red Cell Distribution Width 19.8 % (11.5-14.5); White Blood Count 5.1 K/mm3 (4.5-10.0)
[2021-06-16 05:34] LABS: Anion Gap 0 mmol/L (8-16); Blood Urea Nitrogen 21 mg/dL (7-17); Calcium 7.2 mg/dL (8.4-10.2); Carbon Dioxide 31 mmol/L (22-30); Chloride 103 mmol/L (98-107); Estimated CRCL calculation 44 ml/min; Estimated Glomerular Filt Rate > 60; Glucose 88 mg/dL (65-110); Magnesium 2.7 mg/dL (1.6-2.3); Potassium 3.5 mmol/L (3.4-5.0); Sodium 134 mmol/L (137-145)
--- NOTE | 2021-06-16 07:47 | PM.DS ---
DS: Admitting Diagnosis Discharge Date 06/16/2021 Admitting Diagnosis #Acute anemia #Severe protein calorie malnutrition DS: Discharge Diagnosis Discharge Diagnosis (1) Acute anemia: Code(s): D64.9 - Anemia, unspecified Status: Acute (2) Severe protein-calorie malnutrition: Code(s): E43 - Unspecified severe protein-calorie malnutrition Status: Acute (3) Closed fracture of neck of left femur: Qualifiers: Encounter type: initial encounter Qualified Code(s): S72.002A - Fracture of unspecified part of neck of left femur, initial encounter for closed fracture Code(s): S72.002A - Fracture of unspecified part of neck of left femur, initial encounter for closed fracture Status: Acute (4) Duodenal ulcer: Code(s): K26.9 - Duodenal ulcer, unspecified as acute or chronic, without hemorrhage or perforation Status: Acute (5) Gastritis: Code(s): K29.70 - Gastritis, unspecified, without bleeding Status: Acute (6) Schatzki's ring of distal esophagus: Code(s): K22.2 - Esophageal obstruction Status: Acute (7) Hiatal hernia: Code(s): K44.9 - Diaphragmatic hernia without obstruction or gangrene Status: Acute (8) Acute hyponatremia: Code(s): E87.1 - Hypo-osmolality and hyponatremia Status: Acute DS: Summary Hospital Course Hospital Course: 75-year-old [facility], patient is blind with a left hip fracture, unable to bear weight and uses a wheelchair to get around. Patient was brought to the emergency room for evaluation after lab work routinely drawn showed a hemoglobin of 4. Patient can not really give any history due to her blindness she is unable to see if she has had any melena or bright red blood per rectum. States that she eats well, denies any fevers, any rigors ,any chills, any cough, any sputum production. Preliminary workup was significant for CBC with a hemoglobin of 4, MCV 113. Patient was admitted for further evaluation management and treatment. #Severe acute anemia: -due to acute blood loss anemia. -Hb of 4.0 on admission, she was transfused with 2 units of PRBC on 06/14/21 with improvement of her Hb to 8.0 -today her Hb is down to 6.6 -normal iron, ferritin and B12 levels. -transfused with 1 unit of PRBC today with post transfusion Hb of 8.6 -GI is following and they plan to an EGD and colonoscopy today. -follow up CBC tomorrow. #Duodenal ulcer: #Gastritis: #Schatzki ring: #Hiatal hernia: #Acute on Chronic hyponatremia: -Na stable around 133. #Severe protein-calorie malnutrition: Code(s): E43 - Unspecified severe protein-calorie malnutrition Status: Acute Assessment and Plan: -PO intake encouraged. #Closed fracture of neck of left femur: Qualifiers: Encounter type: initial encounter Qualified Code(s): S72.002A - Fracture of unspecified part of neck of left femur, initial encounter for closed fracture Code(s): S72.002A - Fracture of unspecified part of neck of left femur, initial encounter for closed fracture Status: Acute Assessment and Plan: PATIENT IS WHEELCHAIR-BOUND #Postherpetic neuralgia: Code(s): B02.29 - Other postherpetic nervous system involvement Status: Acute Assessment and Plan: SUPPORTIVE CARE #Blindness: Code(s): H54.7 - Unspecified visual loss Status: Acute Assessment and Plan: -fall precautions. Time Spent with Patient Time attestation: Total time spent providing and/or coordinating discharge services: 40 minutes Exam Const: General: comfortable and no acute distress Chest: Chest palpation & inspection: normal inspection of the chest Resp: Effort & Inspection: normal respiratory effort and able to speak in complete sentences Auscultation: clear to auscultation bilaterally GI: Inspection: normal to inspection GI Palp: No abdominal tenderness Auscultati
[2021-06-16] MEDS: polyethylene glycoL 3350 238 GM BOTTLE PO (08:30)
[2021-06-16] MEDS: PANTOPRAZOLE SODIUM IV 40 MG VIAL IV PUSH ×2 (08:43→20:46)
[2021-06-16 08:59] LABS: Glucose Point of Care 96 mg/dl (65-105)
--- NOTE | 2021-06-16 09:33 | PM.IMPN ---
Progress Note: A&P Additional Plan 75-year-old female who resides at [facility], patient is blind with a left hip fracture, unable to bear weight and uses a wheelchair to get around. Patient was brought to the emergency room for evaluation after lab work routinely drawn showed a hemoglobin of 4. Patient can not really give any history due to her blindness she is unable to see if she has had any melena or bright red blood per rectum. States that she eats well, denies any fevers, any rigors ,any chills, any cough, any sputum production. Preliminary workup was significant for CBC with a hemoglobin of 4, MCV 113. Patient was admitted for further evaluation management and treatment. #Severe acute anemia: -due to acute blood loss anemia. -Hb of 4.0 on admission, she was transfused with 2 units of PRBC on 06/14/21 with improvement of her Hb to 8.0 -today her Hb is down to 6.6 -normal iron, ferritin and B12 levels. -transfused with 1 unit of PRBC on with post transfusion Hb of 8.6 -she had an EGD done on 06/15/21, it reported mild schatzki ring in the GE junction, small hiatal hernia in the cardia, moderate gastritis, multiple superficial ulcers measuring 4-12 mm with one of them oozing blood (Russell 1b), it was cauterized with gold probe. -most recent Hb is 7.5 -GI is following and they plan to a colonoscopy today. -follow up CBC tomorrow. #Duodenal ulcer: #Gastritis: #Schatzki ring: #Hiatal hernia: -she had an EGD done on 06/15/21, it reported mild schatzki ring in the GE junction, small hiatal hernia in the cardia, moderate gastritis, multiple superficial ulcers measuring 4-12 mm with one of them oozing blood (Russell 1b), it was cauterized with gold probe. -pantoprazole 40mg BID. #Acute on Chronic hyponatremia: -Na stable around 133. #Severe protein-calorie malnutrition: Code(s): E43 - Unspecified severe protein-calorie malnutrition Status: Acute Assessment and Plan: -PO intake encouraged. #Closed fracture of neck of left femur: Qualifiers: Encounter type: initial encounter Qualified Code(s): S72.002A - Fracture of unspecified part of neck of left femur, initial encounter for closed fracture Code(s): S72.002A - Fracture of unspecified part of neck of left femur, initial encounter for closed fracture Status: Acute #Post herpetic neuralgia: -start PO gabapentin 300mg daily, if she tolerates it then it can be increased to BID. Subjective Date/time seen: 06/16/21 09:33 Patient seen lying in bed, she endorsed her chronic pain under her breast. RN was at the bedside, encouraging the patient to finish drinking her bowel prep. Exam Const: General: cooperative and no acute distress Resp: Effort & Inspection: normal respiratory effort and able to speak in complete sentences Auscultation: clear to auscultation bilaterally Cardio: Rate: regular rate Heart sounds: S1 normal heart sound present and S2 normal heart sound present GI: GI Palp: Yes Soft to palpation Auscultation: normal bowel sounds Extrem: General: normal to inspection Objective Data Vital Signs Vital Signs: Vital Signs - 24 hr 06/15/21 09:35 06/15/21 10:00 06/15/21 10:35 Temperature 98.1 F 98.2 F Pulse Rate 81 83 78 Respiratory Rate 18 20 Blood Pressure 114/62 127/51 L Pulse Oximetry 100 100 06/15/21 11:06 06/15/21 12:00 06/15/21 12:51 Temperature 98.4 F 97.6 F 98.5 F Pulse Rate 76 74 78 Respiratory Rate 20 20 16 Blood Pressure 122/48 L 127/51 L 130/56 L Pulse Oximetry 100 100 100 06/15/21 13:47 06/15/21 13:57 06/15/21 14:00 Temperature Pulse Rate 79 83 74 Respiratory Rate 23 H 12 Blood Pressure 135/57 L 132/56 L Pulse Oximetry 100 100 06/15/21 14:07 06/15/21 16:00 06/15/21 18:00 Temperature 98.2 F Pulse Rate 73 73 71 Respiratory Rate 14 20 Blood Pressure 134/56 L 114/55 L Pulse Oximetry 99 100 06/15/21 20:00 06/15/21 22:00 06/16/21 00:00 Temperature 99.2 F 97.
[2021-06-16 10:23] LABS: Anion Gap 5 mmol/L (8-16); Blood Urea Nitrogen 20 mg/dL (7-17); Calcium 7.5 mg/dL (8.4-10.2); Carbon Dioxide 27 mmol/L (22-30); Chloride 103 mmol/L (98-107); Estimated CRCL calculation 37 ml/min; Estimated Glomerular Filt Rate > 60; Glucose 120 mg/dL (65-110); Potassium 3.5 mmol/L (3.4-5.0); Sodium 135 mmol/L (137-145)
--- NOTE | 2021-06-16 12:47 | WPDANESEFPP ---
Anes - Eval Final PreProcedure Day of Procedure 06/16/21 12:47 Patient weight: thin Heart: regular rate and rhythm Lungs: clear to auscultation Neurological: unresponsive Last oral intake: >/= 8 hours ASA classification: IV Emergent: no Anesthetic plan: proceed Anesthesia type and monitoring: general GIVS and standard monitoring Results Review: All pre-operative results and documents have been reviewed as part of the pre-operative evaluation. Informed Consent: The patient's anesthetic plan and its attendant risks and benefits were discussed with the patient/family/POA. Questions were solicited and answers provided to the satisfaction of the patient/family/POA.
--- NOTE | 2021-06-16 12:48 | PCNFU ---
Nutrition Follow-Up Complete: Altered GI function related to GI bleed as evidenced by clear liquid diet. Goal: Adequate intake of at least 75% of meals and supplements. Pt current nutrition is Clear Liquid Diet. Last recorded weight is 34.6 kg. Stable. Bowel Motility: + BM 06/16 Labs Reviewed: Hgb:7.5, Hct:22.7, Na:135, BUN:20, Cr:0.6, Glu:120 Meds Noted:Protonix Iv Skin: WNL Additional Notes: Pt is on clear liquid diet and receives Ensure Clear TID: 240 kcals, 8 grams protein per carton. Pt consumed 60% of breakfast this morning. Pt is preparing for colonoscopy. Monitor intake, weight, and labs and will follow up in 3 days.
--- NOTE | 2021-06-16 12:56 | PCNSR ---
On 06/16/21, the student, Ester Wheat, provided care and completed [facility] documentation on this patient. I have reviewed the student's documentation and agree with the findings.
[2021-06-16] MEDS: LACTATED RINGERS 1,000 ML 150 ML IV CONT (12:57)
--- NOTE | 2021-06-16 13:22 | WPDANESPN ---
Anes - Prog Note Post-Op Date/Time: 06/16/21 13:23 Cardiovascular status: other (anemia) Respiratory status: normal Airway patency: baseline Mental status: baseline Post-Op hydration status: normal Vital Signs: Last Vital Signs Temp 98 F 06/16/21 12:49 Pulse 70 06/16/21 12:49 Resp 16 06/16/21 12:49 BP 120/53 L 06/16/21 12:49 Pulse Ox 99 06/16/21 12:49 Pain Score (VAS): 02/27 I/O: Intake & Output 06/15/21 06/16/21 06/16/21 23:59 07:59 15:59 Intake Total 220 60 800 Balance 220 60 800 Laboratory Tests 06/16/21 04:41 06/16/21 10:08 06/15/21 06/15/21 06/16/21 17:56 17:56 04:41 WBC 5.1 RBC 2.31 L Hgb 8.5 L 7.5 L Hct 25.3 L 22.7 L MCV 98.3 MCH 32.5 MCHC 33.0 RDW 19.8 H Plt Count 183 MPV 9.7 Immature Gran % (Auto) 0.8 H Neut % (Auto) 65.0 Lymph % (Auto) 25.2 [place] % (Auto) 6.6 Eos % (Auto) 2.0 Baso % (Auto) 0.4 Lymph # (Auto) 1.29 [place] # (Auto) 0.3 Eos # (Auto) 0.1 Baso # (Auto) 0.0 Abs Immat Gran (auto) 0.04 H Absolute Neuts (auto) 3.3 Absolute Nucleated RBC 0.0 Nucleated RBC % 0.0 PT 14.6 INR 1.2 Sodium Potassium Chloride Carbon Dioxide Anion Gap BUN Creatinine Estim Creat Clear Calc Estimated GFR Glucose POC Capillary Glucose Calcium Magnesium 06/16/21 06/16/21 06/16/21 04:41 07:59 10:08 WBC RBC Hgb Hct MCV MCH MCHC RDW Plt Count MPV Immature Gran % (Auto) Neut % (Auto) Lymph % (Auto) [place] % (Auto) Eos % (Auto) Baso % (Auto) Lymph # (Auto) [place] # (Auto) Eos # (Auto) Baso # (Auto) Abs Immat Gran (auto) Absolute Neuts (auto) Absolute Nucleated RBC Nucleated RBC % PT INR Sodium 134 L 135 L Potassium 3.5 3.5 Chloride 103 103 Carbon Dioxide 31 H 27 Anion Gap 0 L 5 L BUN 21 H D 20 H Creatinine 0.50 L 0.60 L Estim Creat Clear Calc 44 37 Estimated GFR > 60 > 60 Glucose 88 120 H POC Capillary Glucose 96 Calcium 7.2 L 7.5 L Magnesium 2.7 H Post-procedural complaints: none Patient Feedback: Patient satisfied with anesthetic care.
[2021-06-16 14:09] LABS: Red Blood Cell Folate >1000 ng/mL RBC (>280)
--- NOTE | 2021-06-16 14:14 | PCCCNOTE ---
On 06/16/21, the student, [Micki Loyd], provided care and completed [facility] documentation on this patient. I have reviewed the student's documentation and agree with the findings.
[2021-06-16] MEDS: GABAPENTIN 300 MG CAPSULE PO (16:14)
[2021-06-16] MEDS: MIRTAZAPINE 15 MG TABLET PO (20:46)
[2021-06-16] MEDS: ACETAMINOPHEN 325 MG TABLET 650 MG PO (21:00)
[2021-06-17] VITALS (14 sets, daily range): BP systolic 93–128; BP diastolic 39–68; PULSE 60–85; RESP 14–16; TEMP 35.9–36.9; O2SAT 94–100
[2021-06-17 04:57] LABS: Basophils Percent Auto 0.7 % (0.2-1.2); Eosinophils Absolute Auto 0.1 K/mm3 (0-0.3); Eosinophils Percent Auto 2.7 % (0-4.4); Hematocrit 24.7 % (37.0-47.0); Hemoglobin 7.8 g/dL (12.0-15.0); Immature Granulocyte Absolute 0.03 K/mm3 (0.00-0.031); Immature Granulocyte Percent A 0.7 % (0-0.5); Lymphocytes Absolute Auto 1.38 K/mm3 (0.9-3.2); Lymphocytes Percent Auto 33.6 % (18.3-44.2); Mean Corpuscular HGB Conc 31.6 g/dl (32-36); Mean Corpuscular Hemoglobin 32.2 pg (26-34); Mean Corpuscular Volume 102.1 fl (80-100); Mean Platelet Volume 9.3 fl (7.4-10.4); Monocytes Absolute Auto 0.4 K/mm3 (0.1-0.6); Monocytes Percent Auto 8.5 % (2.6-8.5); Neutrophils Absolute Auto 2.2 K/mm3 (1.3-6.7); Neutrophils Percent Auto 53.8 % (45.5-73.1); Platelet Count Result 191 k/mm3 (150-375); Red Blood Count 2.42 M/mm3 (4.2-5.4); Red Cell Distribution Width 19.8 % (11.5-14.5); White Blood Count 4.1 K/mm3 (4.5-10.0)
[2021-06-17] MEDS: LEVOTHYROXINE SODIUM 50 MCG TABLET PO (06:32)
--- NOTE | 2021-06-17 08:03 | PM.IMPN ---
Progress Note: A&P Additional Plan 75-year-old female [facility], patient is blind with a left hip fracture, unable to bear weight and uses a wheelchair to get around. Patient was brought to the emergency room for evaluation after lab work routinely drawn showed a hemoglobin of 4. Patient can not really give any history due to her blindness she is unable to see if she has had any melena or bright red blood per rectum. States that she eats well, denies any fevers, any rigors ,any chills, any cough, any sputum production. Preliminary workup was significant for CBC with a hemoglobin of 4, MCV 113. Patient was admitted for further evaluation management and treatment. #Severe acute anemia: -due to acute blood loss anemia. -Hb of 4.0 on admission, she was transfused with 2 units of PRBC on 06/14/21 with improvement of her Hb to 8.0 -today her Hb is down to 6.6 -normal iron, ferritin and B12 levels. -transfused with 1 unit of PRBC on 06/15/21 with post transfusion Hb of 8.6 -she had an EGD done on 06/15/21, it reported mild schatzki ring in the GE junction, small hiatal hernia in the cardia, moderate gastritis, multiple superficial ulcers measuring 4-12 mm with one of them oozing blood (Russell 1b), it was cauterized with gold probe. -GI did a colonoscopy on 06/16/21, it revealed non bleeding hemorrhoids only. -hence the etiology of her UGIB has been deemed to be recently duodenal ulcer and gastritis found on EGD done on 06/15/21. -most recent Hb is 7.8 today from 7.5 yesterday. -start PO ferrous 324mg TID, switched to PO pantoprazole 40mg BID. -follow up CBC tomorrow. #Duodenal ulcer: #Gastritis: #Schatzki ring: #Hiatal hernia: -she had an EGD done on 06/15/21, it reported mild schatzki ring in the GE junction, small hiatal hernia in the cardia, moderate gastritis, multiple superficial ulcers measuring 4-12 mm with one of them oozing blood (Russell 1b), it was cauterized with gold probe. -switched to PO pantoprazole 40mg BID. -incoming hospitalist is to follow up CBC done tomorrow. #Hemorrhoids: -diagnosed on colonoscopy done on 06/16/21 -on stool softeners to prevent constipation. #Acute on Chronic hyponatremia: improved -Na improved to 135. -PO intake . #Severe protein-calorie malnutrition: -PO intake encouraged. #Closed fracture of neck of left femur: -not new, uses wheelchair in the NH. #Post herpetic neuralgia: -increase PO gabapentin 300mg to BID. DVT prophylaxis: SCD boots. Time Spent With Patient Time with patient: 15 - 25 minutes Subjective Date/time seen: 06/17/21 08:03 Patient seen lying comfortably in bed, she denies having any new complains. Exam Const: General: cooperative and no acute distress Resp: Effort & Inspection: normal respiratory effort and able to speak in complete sentences Auscultation: clear to auscultation bilaterally Cardio: Rate: regular rate Rhythm: regular rhythm Heart sounds: S1 normal heart sound present and S2 normal heart sound present GI: Inspection: normal to inspection GI Palp: Yes Soft to palpation Auscultation: normoactive bowel sounds Extrem: General: normal to inspection and no edema Objective Data Vital Signs Vital Signs: Vital Signs - 24 hr 06/16/21 08:18 06/16/21 10:00 06/16/21 12:00 Temperature 97.5 F L Pulse Rate 69 70 Respiratory Rate 18 Blood Pressure 96/48 L Pulse Oximetry 98 100 06/16/21 12:49 06/16/21 13:24 06/16/21 13:34 Temperature 98 F Pulse Rate 70 68 67 Respiratory Rate 16 17 16 Blood Pressure 120/53 L 91/49 L 101/49 L Pulse Oximetry 99 100 100 06/16/21 13:44 06/16/21 14:00 06/16/21 16:00 Temperature 98.1 F Pulse Rate 67 68 80 Respiratory Rate 19 18 Blood Pressure 104/55 L 116/45 L Pulse Oximetry 100 98 06/16/21 18:00 06/16/21 20:00 06/16/21 20:50 Temperature 98 F Pulse Rate 75 72 Respiratory Rate 16 Blood Pressure 99/57 L Pulse Oximetry 100 98 06/16/21 22:00 06/16/21 23:19 06/17/21
[2021-06-17] MEDS: polyethylene glycoL 3350 17 GM POWD.PACK PO (08:46)
[2021-06-17] MEDS: PANTOPRAZOLE 40 MG TABLET PO ×2 (08:46→20:58)
[2021-06-17] MEDS: ASPIRIN 325 MG TABLET PO (08:48)
[2021-06-17] MEDS: GABAPENTIN 300 MG CAPSULE PO ×2 (08:49→16:05)
[2021-06-17] MEDS: FOLIC ACID 0.4 MG TABLET PO (08:49)
[2021-06-17] MEDS: TRIAMCINOLONE ACET 0.1% CREAM 15 GM TUBE 1 APPLIC TOPICAL ×2 (09:04→20:59)
[2021-06-17] MEDS: LIDOCAINE 5% PATCH 3 PATCH TOPICAL (09:04)
--- NOTE | 2021-06-17 10:30 | P.PNAN_ITS ---
Anes - Prog Note Post-Op Date/Time: 06/17/21 10:30 Cardiovascular status: other (anemia) Respiratory status: normal Airway patency: baseline Mental status: baseline Post-Op hydration status: normal Vital Signs: Last Vital Signs Temp 36.6 C 06/17/21 08:00 Pulse 61 06/17/21 08:00 Resp 16 06/17/21 08:00 BP 123/47 L 06/17/21 08:00 Pulse Ox 100 06/17/21 08:00 Pain Score (VAS): 3 I/O: Intake & Output 06/16/21 06/17/21 06/17/21 23:59 07:59 15:59 Intake Total 240 Balance 240 Laboratory Tests 06/17/21 04:32 06/16/21 10:08 06/14/21 06/17/21 05:06 04:32 WBC 4.1 L RBC 2.42 L Hgb 7.8 L Hct 24.7 L MCV 102.1 H MCH 32.2 MCHC 31.6 L RDW 19.8 H Plt Count 191 MPV 9.3 Immature Gran % (Auto) 0.7 H Neut % (Auto) 53.8 Lymph % (Auto) 33.6 [place] % (Auto) 8.5 Eos % (Auto) 2.7 Baso % (Auto) 0.7 Lymph # (Auto) 1.38 [place] # (Auto) 0.4 Eos # (Auto) 0.1 Baso # (Auto) 0.0 Abs Immat Gran (auto) 0.03 Absolute Neuts (auto) 2.2 Absolute Nucleated RBC 0.0 Nucleated RBC % 0.0 RBC Folate >1000 Hematocrit 17.3 Post-procedural complaints: none Patient Feedback: Patient satisfied with anesthetic care.
--- NOTE | 2021-06-17 12:46 | PCDIET ---
This patient, Marlene Mina, was received from [[facility] ] on 06/17/21 at 1246. Patient/family oriented to unit policies and routines
--- NOTE | 2021-06-17 13:21 | PC.NURSE ---
This patient, Marlene Mina, was transferred to [[id number] ] on 06/17/21 at 11:59. Personal belongings sent with patient. Report given. Appropriate documentation sent with patient.
[2021-06-17 14:46] LABS: Methylmalonic Acid 178 nmol/L (87-318)
[2021-06-17] MEDS: FERROUS SULFATE 324 MG TABLET PO (16:05)
[2021-06-17] MEDS: MIRTAZAPINE 15 MG TABLET PO (20:58)
[2021-06-17] MEDS: DOCUSATE SODIUM 100 MG CAPSULE 200 MG PO (20:58)
[2021-06-18] MEDS: ACETAMINOPHEN 325 MG TABLET 650 MG PO ×4 (00:40→21:41)
[2021-06-18 05:25] LABS: Basophils Percent Auto 0.6 % (0.2-1.2); Eosinophils Absolute Auto 0.2 K/mm3 (0-0.3); Eosinophils Percent Auto 3.2 % (0-4.4); Hematocrit 24.6 % (37.0-47.0); Immature Granulocyte Absolute 0.02 K/mm3 (0.00-0.031); Immature Granulocyte Percent A 0.4 % (0-0.5); Lymphocytes Percent Auto 28.1 % (18.3-44.2); Mean Corpuscular HGB Conc 32.5 g/dl (32-36); Mean Corpuscular Hemoglobin 32.4 pg (26-34); Mean Corpuscular Volume 99.6 fl (80-100); Mean Platelet Volume 9.2 fl (7.4-10.4); Monocytes Absolute Auto 0.4 K/mm3 (0.1-0.6); Monocytes Percent Auto 9.1 % (2.6-8.5); Neutrophils Absolute Auto 2.7 K/mm3 (1.3-6.7); Neutrophils Percent Auto 58.6 % (45.5-73.1); Platelet Count Result 195 k/mm3 (150-375); Red Blood Count 2.47 M/mm3 (4.2-5.4); Red Cell Distribution Width 18.7 % (11.5-14.5); White Blood Count 4.6 K/mm3 (4.5-10.0)
[2021-06-18 05:32] VITALS: BP 123/45; PULSE 87; RESP 18; TEMP 36.6; O2SAT 97
[2021-06-18 05:34] LABS: Anion Gap 2 mmol/L (8-16); Blood Urea Nitrogen 15 mg/dL (7-17); Calcium 7.5 mg/dL (8.4-10.2); Carbon Dioxide 30 mmol/L (22-30); Chloride 104 mmol/L (98-107); Estimated CRCL calculation 36 ml/min; Estimated Glomerular Filt Rate > 60; Glucose 85 mg/dL (65-110); Potassium 4.1 mmol/L (3.4-5.0); Sodium 136 mmol/L (137-145)
[2021-06-18] MEDS: LEVOTHYROXINE SODIUM 50 MCG TABLET PO (05:39)
[2021-06-18 09:00] VITALS: BP 116/61; PULSE 89; RESP 16; O2SAT 98
[2021-06-18] MEDS: ASPIRIN 325 MG TABLET PO (09:02)
[2021-06-18] MEDS: FERROUS SULFATE 324 MG TABLET PO ×3 (09:02→16:21)
[2021-06-18] MEDS: FOLIC ACID 0.4 MG TABLET PO (09:02)
[2021-06-18] MEDS: polyethylene glycoL 3350 17 GM POWD.PACK PO (09:03)
[2021-06-18] MEDS: GABAPENTIN 300 MG CAPSULE PO ×2 (09:03→16:21)
[2021-06-18] MEDS: PANTOPRAZOLE 40 MG TABLET PO ×2 (09:03→20:36)
[2021-06-18] MEDS: LIDOCAINE 5% PATCH 3 PATCH TOPICAL (09:04)
[2021-06-18] MEDS: TRIAMCINOLONE ACET 0.1% CREAM 15 GM TUBE 1 APPLIC TOPICAL ×2 (09:05→20:39)
[2021-06-18 09:30] VITALS: O2SAT 98
[2021-06-18 14:15] VITALS: BP 120/46; PULSE 73; RESP 15; TEMP 36.4; O2SAT 99
--- NOTE | 2021-06-18 14:51 | PM.IMPN ---
Progress Note: A&P Assessment and Plan (1) Acute anemia: Code(s): D64.9 - Anemia, unspecified Status: Acute Assessment and Plan: -GI was consulted, patient had EGD on 06/15/2021 that showed Schatzki's ring at the GE junction, moderate gastritis and multiple superficial ulcers with 1 actively bleeding. Colonoscopy on 06/16/2021 showed internal hemorrhoids. -patient has received a total of 3 units of packed red blood cells transfusion. Last transfusion was 06/17/2021. -anemic labs were performed and iron is normal at 94, ferritin 140 transferrin 181. B12 is 305, Na 178 and folate greater than a 1000. -supplemental p.o. iron is initiated. -monitor serial CBCs (2) Severe protein-calorie malnutrition: Code(s): E43 - Unspecified severe protein-calorie malnutrition Status: Acute Assessment and Plan: -nutrition consulted. -continue with male supplementation with Ensure t.i.d. -monitor weight daily. (3) Closed fracture of neck of left femur: Qualifiers: Encounter type: initial encounter Qualified Code(s): S72.002A - Fracture of unspecified part of neck of left femur, initial encounter for closed fracture Code(s): S72.002A - Fracture of unspecified part of neck of left femur, initial encounter for closed fracture Status: Chronic Assessment and Plan: -nonweightbearing left lower extremity from hospitalization previously. (4) Duodenal ulcer: Code(s): K26.9 - Duodenal ulcer, unspecified as acute or chronic, without hemorrhage or perforation Status: Acute Assessment and Plan: -manage per GI with cauterization -no active bleeding identified. (5) Gastritis: Qualifiers: Gastritis type: unspecified gastritis Chronicity: unspecified Gastritis bleeding: without bleeding Qualified Code(s): K29.70 - Gastritis, unspecified, without bleeding Code(s): K29.70 - Gastritis, unspecified, without bleeding Status: Acute Assessment and Plan: -maximize Protonix to 40 mg p.o. b.i.d.. (6) Schatzki's ring of distal esophagus: Code(s): K22.2 - Esophageal obstruction Status: Acute Assessment and Plan: -management per GI (7) Hiatal hernia: Code(s): K44.9 - Diaphragmatic hernia without obstruction or gangrene Status: Acute Assessment and Plan: - Management per GI - Continue PPA (8) Acute hyponatremia: Code(s): E87.1 - Hypo-osmolality and hyponatremia Status: Resolved Assessment and Plan: -resolved today at 136. Time Spent With Patient Time with patient: 15 - 25 minutes Subjective Date/time seen: 06/18/21 14:51 This patient was examined at the bedside today in interval assessment of her GI bleed. She has complaint of a dry mouth and gritty feeling to her tongue overnight. She has a stable Hgb today that has not dropped further since the last transfusion. She has no new symptoms to report such as CP, Dyspnea, N/V/D, and no urinary complaints. She will likely be discharged back to senior living tomorrow. Review of Systems Review of Systems: All systems reviewed & are unremarkable except as noted in HPI and below Exam Const: General: comfortable and no acute distress Other: Elderly female patient lying supine in bed at this time in no acute distress. HENMT: Mouth: Yes moist mucous membranes and No Abnormal oral and palatal mucosa present Other: Oral mucosa was examined with light and there is no erythema, edema, exudate or lesions. There are no signs thrush noted. The uvula is midline about the palate. Patent oropharynx. Eyes: Sclera: sclerae normal Neck: Neck: supple and no JVD Lymphatic: lymphadenopathy not noted Resp: Effort & Inspection: normal respiratory effort Auscultation: clear to auscultation bilaterally, no crackles, no rales, no rhonchi, no wheezes and lung sounds not diminished Cardio: Rate: regular rate Rhythm: regular rhythm GI: GI Palp: Yes Soft to
[2021-06-18] MEDS: MIRTAZAPINE 15 MG TABLET PO (20:36)
[2021-06-18] MEDS: DOCUSATE SODIUM 100 MG CAPSULE 200 MG PO (20:36)
[2021-06-18 21:35] VITALS: O2SAT 97
[2021-06-18 22:00] VITALS: BP 100/58; PULSE 71; RESP 20; TEMP 36.4; O2SAT 98
[2021-06-19 05:41] LABS: Basophils Percent Auto 1.2 % (0.2-1.2); Eosinophils Absolute Auto 0.1 K/mm3 (0-0.3); Hematocrit 25.5 % (37.0-47.0); Hemoglobin 8.3 g/dL (12.0-15.0); Immature Granulocyte Absolute 0.01 K/mm3 (0.00-0.031); Immature Granulocyte Percent A 0.3 % (0-0.5); Lymphocytes Absolute Auto 1.23 K/mm3 (0.9-3.2); Lymphocytes Percent Auto 36.6 % (18.3-44.2); Mean Corpuscular HGB Conc 32.5 g/dl (32-36); Mean Corpuscular Hemoglobin 32.4 pg (26-34); Mean Corpuscular Volume 99.6 fl (80-100); Mean Platelet Volume 9.1 fl (7.4-10.4); Monocytes Absolute Auto 0.2 K/mm3 (0.1-0.6); Monocytes Percent Auto 6.8 % (2.6-8.5); Neutrophils Absolute Auto 1.8 K/mm3 (1.3-6.7); Neutrophils Percent Auto 52.1 % (45.5-73.1); Platelet Count Result 187 k/mm3 (150-375); Red Blood Count 2.56 M/mm3 (4.2-5.4); Red Cell Distribution Width 18.1 % (11.5-14.5); White Blood Count 3.4 K/mm3 (4.5-10.0)
[2021-06-19] MEDS: LEVOTHYROXINE SODIUM 50 MCG TABLET PO (05:42)
[2021-06-19 06:00] VITALS: BP 126/58; PULSE 75; RESP 20; TEMP 36.1; O2SAT 99
[2021-06-19 06:14] LABS: Alanine Aminotransferase 11 U/L (4-35); Albumin Level 2.4 g/dL (3.5-5.1); Alkaline Phosphatase 56 U/L (38-126); Anion Gap 2 mmol/L (8-16); Aspartate Amino Transferase 18 U/L (14-36); Bilirubin,Total 0.3 mg/dL (0.2-1.3); Blood Urea Nitrogen 12 mg/dL (7-17); Calcium 7.7 mg/dL (8.4-10.2); Carbon Dioxide 31 mmol/L (22-30); Chloride 103 mmol/L (98-107); Estimated CRCL calculation 36 ml/min; Estimated Glomerular Filt Rate > 60; Glucose 79 mg/dL (65-110); Magnesium 1.8 mg/dL (1.6-2.3); Sodium 136 mmol/L (137-145)
--- NOTE | 2021-06-19 07:26 | PM.DS ---
DS: Admitting Diagnosis Discharge Date 06/19/2021 Admitting Diagnosis Anemia Severe Protein-calorie malnutrition Closed fracture of neck of left femur Postherpetic neuralgia Blindness DS: Discharge Diagnosis Discharge Diagnosis (1) Acute anemia: Code(s): D64.9 - Anemia, unspecified Status: Acute Assessment and Plan: -GI was consulted, patient had EGD on 06/15/2021 that showed Schatzki's ring at the GE junction, moderate gastritis and multiple superficial ulcers with 1 actively bleeding. Colonoscopy on 06/16/2021 showed internal hemorrhoids. -patient has received a total of 3 units of packed red blood cells transfusion. Last transfusion was 06/17/2021. -anemic labs were performed and iron is normal at 94, ferritin 140 transferrin 181. B12 is 305, Na 178 and folate greater than a 1000. -supplemental p.o. iron is initiated. -monitor serial CBCs - 06/19/21: Date of discharge - Pt's Hgb has maintained and slightly risen on it's own to 8.3/25.5 (2) Severe protein-calorie malnutrition: Code(s): E43 - Unspecified severe protein-calorie malnutrition Status: Acute Assessment and Plan: -nutrition consulted. -continue with male supplementation with Ensure t.i.d. -monitor weight daily. - 06/19/2021: Date of discharge - Recommend continuing supplemental protein at discharge. (3) Closed fracture of neck of left femur: Qualifiers: Encounter type: initial encounter Qualified Code(s): S72.002A - Fracture of unspecified part of neck of left femur, initial encounter for closed fracture Code(s): S72.002A - Fracture of unspecified part of neck of left femur, initial encounter for closed fracture Status: Chronic Assessment and Plan: -nonweightbearing left lower extremity from hospitalization previously. - 06/19/21: Date of discharge - Continue previous recommendations from Orthopedics. (4) Duodenal ulcer: Code(s): K26.9 - Duodenal ulcer, unspecified as acute or chronic, without hemorrhage or perforation Status: Acute Assessment and Plan: -manage per GI with cauterization -no active bleeding identified. - 06/19/21: Date of discharge - Follow up with GI. (5) Gastritis: Qualifiers: Chronicity: unspecified Gastritis bleeding: without bleeding Gastritis type: unspecified gastritis Qualified Code(s): K29.70 - Gastritis, unspecified, without bleeding Code(s): K29.70 - Gastritis, unspecified, without bleeding Status: Acute Assessment and Plan: -maximize Protonix to 40 mg p.o. b.i.d.. - 06/19/21: Date of discharge - Continue Protonix therapy 40 mg po BID until following up with GI. (6) Schatzki's ring of distal esophagus: Code(s): K22.2 - Esophageal obstruction Status: Acute Assessment and Plan: -management per GI (7) Hiatal hernia: Code(s): K44.9 - Diaphragmatic hernia without obstruction or gangrene Status: Acute Assessment and Plan: - Management per GI - Continue PPA (8) Acute hyponatremia: Code(s): E87.1 - Hypo-osmolality and hyponatremia Status: Resolved Assessment and Plan: -resolved today at 136. - 06/19/21: Date of discharge - 136 today. DS: Summary Hospital Course Reason for hospitalization: Acute Anemia 2/2 acute GI bleed Hospital Course: This 75 year old female patient who lives at a shelter, presented to the ER on 06/14/2021 from her facility with a Hgb of 4.0. Unable to tell if she had any overt melena or hematochezia secondary to her blindness. She has had a normal diet and appetite for her, but remains emaciated appearing. Supplementation for her dietary needs has been started here and we will recommend that she continues. She was evaluated by GI and underwent both an EGD as well as a colonoscopy. Her colonoscopy showed non-inflammed internal hemorrhoids and her EGD showed a Schatzkis ring, Hiatal hernia, Gastritis and a bleeding Duodenal ulcer that was caute
[2021-06-19] MEDS: FERROUS SULFATE 324 MG TABLET PO ×2 (08:08→11:38)
[2021-06-19] MEDS: GABAPENTIN 300 MG CAPSULE PO (08:08)
[2021-06-19] MEDS: FOLIC ACID 0.4 MG TABLET PO (08:08)
[2021-06-19] MEDS: ASPIRIN 325 MG TABLET PO (08:08)
[2021-06-19] MEDS: PANTOPRAZOLE 40 MG TABLET PO (08:10)
[2021-06-19] MEDS: polyethylene glycoL 3350 17 GM POWD.PACK PO (08:10)
[2021-06-19] MEDS: TRIAMCINOLONE ACET 0.1% CREAM 15 GM TUBE 1 APPLIC TOPICAL (08:15)
[2021-06-19] MEDS: LIDOCAINE 5% PATCH 3 PATCH TOPICAL (08:15)
--- NOTE | 2021-06-19 09:13 | PCNFU ---
Nutrition Follow-Up Complete: Altered GI function related to GI bleed as evidenced by clear liquid diet. Goal: Adequate intake of at least 75% of meals and supplements. Pt has met goal and is consuming 100% of meals. Pt current nutrition is regular diet. Nutrition recommendation: No nutritional recommendation at this time. Last recorded weight is 36.5 kg. Weight is steadily increasing. Bowel Motility: + BM 06/16 Labs Reviewed: Hgb:8.3, Hct:25.5, Alb:2.4, Na:136, Cr: 0.6 Meds Noted: Protonix, ferrous sulfate, folic acid, miralax, drisdol, dulcolax suppository Skin: WNL Additional Notes: Pt is consuming 100% of regular diet meals. Colonoscopy performed 06/16. Plans for discharge back to [facility]. Monitor intake, weight, and labs and will follow up in 7 days.
[2021-06-19 10:24] LABS: EDCOVIDSCREEN Negative (Negative)
--- NOTE | 2021-06-19 11:28 | PCNSR ---
On 06/19/21, the student, Ester Wheat, provided care and completed [facility] documentation on this patient. I have reviewed the student's documentation and agree with the findings.
[2021-06-19 14:05] VITALS: BP 118/54; PULSE 86; RESP 19; TEMP 36.8; O2SAT 97
== END 2021-06-19 16:44 | DRG 377 ==
LOC: ANHED 01:34 → ANHIMU 02:26 → ANH2MED 06-17 12:11
PROVIDERS: Internal Medicine; Internal Medicine Gastroenterology; Nurse Practitioner Adult Health; Admitting Provider Internal Medicine; Emergency Provider Emergency Medicine; Visit Provider Nurse Practitioner Adult Health
PROC: 0DJ08ZZ Inspection of Upper Intestinal Tract, Via Natural or Artificial Opening Endoscopic (ICD-10-PCS; CPT 43235; principal; 2021-06-15 13:45)
PROC: 0DJD8ZZ Inspection of Lower Intestinal Tract, Via Natural or Artificial Opening Endoscopic (ICD-10-PCS; CPT 45378; principal; 2021-06-16 13:30)
DX: K26.4 Chronic or unspecified duodenal ulcer with hemorrhage (principal); S72.002A Fracture of unspecified part of neck of left femur, initial encounter for closed fracture; E43 Unspecified severe protein-calorie malnutrition; D62 Acute posthemorrhagic anemia; B02.29 Other postherpetic nervous system involvement; E87.1 Hypo-osmolality and hyponatremia; Z68.1 Body mass index [BMI] 19.9 or less, adult; K22.2 Esophageal obstruction; Z20.822 Contact with and (suspected) exposure to COVID-19; H54.7 Unspecified visual loss; I67.9 Cerebrovascular disease, unspecified; E03.9 Hypothyroidism, unspecified; Z82.3 Family history of stroke; Z82.49 Family history of ischemic heart disease and other diseases of the circulatory system; Z79.899 Other long term (current) drug therapy; K44.9 Diaphragmatic hernia without obstruction or gangrene; K29.70 Gastritis, unspecified, without bleeding; K64.8 Other hemorrhoids
CPT/HCPCS: 36415; 36430; 80048; 80053; 82607; 82728; 82747; 82948; 83540; 83735; 83921; 84466; 85014; 85018; 85025; 85027; 85610; 86850; 86900; 86901; 86920; 87081; 87426; 93005; 96374; 96376; 99285; A9270; C9113; C9803; G0378; J0131; J2704; J3475; J7050; J7120; P9016; U0003; U0005

== ENCOUNTER 2022-01-31 09:05 | Outpatient (CLI) | payer MEDICARE, SELFPAY ==
--- NOTE | ~2022-01-31 | CT_ITS ---
CT Scan of the Chest without Contrast: Clinical Indication: Rib pain Technique: Contiguous sections were acquired throughout the chest without intravenous contrast. Dose reduction technique was used on this scan by utilizing automated exposure control and iterative recon struction technique. The dose-length product (DLP) was 135.96 mGy-cm. COMPARISON: 03/01/2014 Findings: Extensive atherosclerotic calcifications are present. Calcified subcarinal and right hilar lymph node s are noted. No aortic aneurysm. There is no evidence of pleural or pericardial effusion. There are several focal areas of mild tree-in-bud opacity, for example in the inferior right upper lo be (axial images 51-54), and in the right lower lobe. There are also scattered areas of mild probable chronic scarring at the lingula and right middle lobe. There is a more prominent solid branching opa city in the inferior left upper lobe (axial image 61), with morphology suggestive of impacted small a irway. Calcified right lower lobe granuloma noted. Images through the upper abdomen reveal no abnormalities. Osseous structures are unremarkable. Impression: Pulmonary findings as detailed above, suggestive of acute on chronic small airways infection, such as JOSE. Slightly more prominent branching opacity in the left upper lobe, suggestive of impacted small airway s. Consider follow-up exam in 3 months to reassess. Evidence of prior granulomatous disease. No osseous abnormality or rib abnormality seen. Reviewed, dictated and finalized at location [] LOGY ACCOUNT SPECIALIST Impression: Pulmonary findings as detailed above, suggestive of acute on chronic small airw ays infection, such as JOSE. Slightly more prominent branching opacity in the left upper lobe, suggestive of impacted small airways. Consider follow-up exam in 3 months to reassess. Evidence of prior granulomatous disease. No osseous abnormality or rib abnormality seen.
== END 2022-01-31 09:06 | disposition home or self-care (01) ==
DX: R07.81 Pleurodynia (principal); R91.8 Other nonspecific abnormal finding of lung field
CPT/HCPCS: 71250

== ENCOUNTER 2023-01-18 11:55 | Emergency (ER) | payer MEDICARE, MEDICAID, SELFPAY ==
--- NOTE | ~2023-01-18 | CT_ITS ---
EXAMINATION: CT abdomen pelvis wo con DATE: 01/18/2023 12:45 INDICATION: Abdomen pain. TECHNIQUE: Computed tomography (CT) of the abdomen and pelvis was performed without intravenous contr ast. The dose-length product was 226.42 mGy-cm. Automated exposure control and iterative reconstructi on technique were employed. COMPARISON: CT dated 10/16/2019. FINDINGS: There are reticulonodular densities of the right lower lobe and right middle lobe, most lik dinesh infectious/inflammatory. Heart size normal. No significant pleural or pericardial effusion. There are calcified granulomas of the liver and spleen. There is moderate distention of the stomach. There is ectasia and atherosclerosis of the aorta measuring up to 2.4 cm. No evidence for aneurysm. No ghassan e air or free fluid. No significant lymphadenopathy. No free air or free fluid. IMPRESSION: 1. No acute abdominal abnormality. 2: Reticulonodular densities right lower and middle lobe, most likely infectious/inflammatory. Reviewed, dictated and finalized at location B. CT MARKETING ANALYST IMPRESSION: 1. No acute abdominal abnormality. 2: Reticulonodular densities right lower and middle lobe, most likely infectio us/inflammatory.
[2023-01-18 12:02] VITALS: BP 123/54; PULSE 65; RESP 16; TEMP 36.3; O2SAT 99
--- NOTE | 2023-01-18 12:03 | ED.ABDPAIN ---
HPI - Abdominal Pain General Chief Complaint: Abdominal Pain Stated Complaint: Reaction to COVID Medications Time Seen by Provider: 01/18/23 12:02 Source: patient and other ( senior living documentation) Mode of arrival: EMS History of Present Illness HPI narrative: This is a 77-year-old female who presents with nausea and diarrhea. It is reported the patient has positive for COVID in started Paxil of the head yesterday. Ever since starting these medications she started having her symptoms of nausea and diarrhea. She denies any emesis. She does not know if she has been passing flatus today. She does continue to have an appetite. Unknown if bowel movements bloody. Patient states she was otherwise asymptomatic from COVID when she tested positive. Related Data Home Medications Medication Instructions Recorded Confirmed artificial tears solution eye drops 2 drp ophthalmic (eye) QID PRN dry 05/14/21 06/14/21 eyes ibandronate 150 mg tablet (Boniva) 150 mg PO MONTHLY 05/14/21 06/14/21 lifitegrast 5 % eye drops in a 1 drp RIGHT EYE BID 05/14/21 06/14/21 dropperette (Xiidra) bisacodyl 10 mg rectal suppository 10 mg RECTAL DAILY PRN Constipation 06/14/21 06/14/21 folic acid 400 mcg tablet 0.4 mg PO DAILY 06/14/21 06/14/21 gabapentin 100 mg tablet 100 mg PO TID 06/14/21 06/14/21 magnesium citrate 300 ml PO DAILY PRN Constipation 06/14/21 06/14/21 magnesium hydroxide 400 mg/5 mL 400 mg PO HS PRN Constipation 06/14/21 06/14/21 oral suspension (Milk of Magnesia) sodium phosphates 19 gram-7 197 ml RECTAL ONCE PRN Constipation 06/14/21 06/14/21 gram/118 mL enema (Fleet Enema) nirmatrelvir 300 mg (150 mg ea PO 01/18/23 01/18/23 x2)-ritonavir 100 mg tablet,dose pack (Paxlovid) Allergies Allergy/AdvReac Type Severity Reaction Status Date / Time codeine Allergy Severe Hives Verified 01/18/23 14:00 Iodinated Contrast Media Allergy Unknown hives Verified 01/18/23 14:00 lisinopril Allergy Unknown hives Verified 01/18/23 14:00 Penicillins Allergy Unknown rash Verified 01/18/23 14:00 Sulfa (Sulfonamide Allergy Unknown rash Verified 01/18/23 14:00 Antibiotics) Contrast Media Allergy Unknown hives Uncoded 06/16/21 12:47 [facility] Past Medical History Medical History (Updated 01/19/23 @ 00:01 by Background Dalanre) Anemia Blindness Cerebrovascular disease CVA (cerebral vascular accident) Degenerative disc disease DVT (deep venous thrombosis) GI (gastrointestinal bleed) Glaucoma History of ulcer disease Hypothyroidism Parkinson disease Pressure ulcer, stage 1 Severe protein-calorie malnutrition Shingles Spastic dysphonia TIA (transient ischemic attack) Surgical History Surgical History (Updated 01/18/23 @ 12:43 by Yaa Peters MD) History of corneal transplant History of eye prosthesis Left History of hysterectomy for benign disease S/P hip hemiarthroplasty Left, April [address] Moore per patient Family History Family History Father Patient's father is Family history of emphysema Mother Family history of cardiovascular disease Social History Social History Social History: Surrogate decision maker: Macarena Celestin, friend. Code status: Full code. Smoking status: Never smoker Second hand tobacco smoke exposure: No Alcohol intake: never Substance use: never Substance use type: does not use Additional living arrangements comments: Resides at [facility]. . She has a son but they are estranged apparently. Spiritual care concerns: No Exam Narrative: GENERAL: cachectic/thin with multiple bony prominences but in no acute distress. HEAD: Normocephalic, atraumatic. EYES: sunken, evidence of surgical repair ENT: Nares clear, no rhinorrhea or epistaxis. Mucous membranes tacky NECK: Supple. CHEST: Clear to auscultation
[2023-01-18 12:19] VITALS: BP 135/51; PULSE 60; RESP 14; O2SAT 100
[2023-01-18] MEDS: ONDANSETRON INJ 4 MG/2 ML VIAL IV PUSH (12:57)
[2023-01-18] MEDS: SODIUM CHLORIDE 0.9% IV 1,000 ML 999 ML IV CONT (12:58)
[2023-01-18 13:59] LABS: Basophils Percent Auto 0.3 % (0.2-1.2); Eosinophils Percent Auto 0.6 % (0-4.4); Hematocrit 32.9 % (37.0-47.0); Hemoglobin 10.8 g/dL (12.0-15.0); Immature Granulocyte Absolute 0.02 K/mm3 (0.00-0.031); Immature Granulocyte Percent A 0.3 % (0-0.5); Lymphocytes Absolute Auto 0.91 K/mm3 (0.9-3.2); Lymphocytes Percent Auto 14.5 % (18.3-44.2); Mean Corpuscular HGB Conc 32.8 g/dl (32-36); Mean Corpuscular Hemoglobin 30.7 pg (26-34); Mean Corpuscular Volume 93.5 fl (80-100); Mean Platelet Volume 9.9 fl (7.4-10.4); Monocytes Absolute Auto 0.3 K/mm3 (0.1-0.6); Monocytes Percent Auto 5.3 % (2.6-8.5); Neutrophils Absolute Auto 4.9 K/mm3 (1.3-6.7); Platelet Count Result 150 k/mm3 (150-375); Red Blood Count 3.52 M/mm3 (4.2-5.4); Red Cell Distribution Width 12.7 % (11.5-14.5); White Blood Count 6.3 K/mm3 (4.5-10.0)
[2023-01-18 14:11] LABS: Alanine Aminotransferase 11 U/L (6-35); Albumin Level 3.6 g/dL (3.5-5.1); Alkaline Phosphatase 72 U/L (38-126); Anion Gap 6 mmol/L (8-16); Aspartate Amino Transferase 18 U/L (14-36); Bilirubin,Total 0.8 mg/dL (0.2-1.3); Blood Urea Nitrogen 16 mg/dL (7-17); Calcium 8.2 mg/dL (8.4-10.2); Carbon Dioxide 26 mmol/L (22-30); Chloride 100 mmol/L (98-107); Estimated CRCL calculation 39 ml/min; Estimated Glomerular Filt Rate > 60; Glucose 98 mg/dL (65-110); Lipase 97 U/L (23-300); Potassium 3.8 mmol/L (3.4-5.0); Sodium 132 mmol/L (137-145)
--- NOTE | 2023-01-18 14:50 | PC.NURSE ---
This RN attempted to call nursing facility x3, no answer
== END 2023-01-18 15:40 ==
PROVIDERS: Emergency Provider Student in an Organized Health Care Education/Training Program
DX: R19.7 Diarrhea, unspecified (principal); T37.5X5A Adverse effect of antiviral drugs, initial encounter; D64.9 Anemia, unspecified; U07.1 COVID-19; G20.A1 Parkinson's disease without dyskinesia, without mention of fluctuations; H40.9 Unspecified glaucoma; E03.9 Hypothyroidism, unspecified; Z86.73 Personal history of transient ischemic attack (TIA), and cerebral infarction without residual deficits; Z87.11 Personal history of peptic ulcer disease; Z86.718 Personal history of other venous thrombosis and embolism; Z94.7 Corneal transplant status; Z90.710 Acquired absence of both cervix and uterus
CPT/HCPCS: 36415; 74176; 80053; 83690; 85025; 96361; 96374; 99284; J2405; J7030

== ENCOUNTER 2024-07-17 09:06 | Emergency (ER) | payer MEDICARE, MEDICAID, SELFPAY ==
[2024-07-17 09:09] VITALS: BP 138/67; PULSE 75; RESP 18; O2SAT 100
[2024-07-17 09:19] VITALS: BP 138/67; PULSE 75; RESP 20; TEMP 36.6; O2SAT 100
--- NOTE | 2024-07-17 09:20 | ECG_ITS ---
Test Date: 2024-07-17 09:39:14 Measurements Intervals [place] Rate: 69 P: 72 NC: 214 QRS: -68 QRSD: 120 T: 77 QT: 367 QTc: 395 Interpretive Statements SINUS RHYTHM WITH FIRST DEGREE AV BLOCK RIGHT BUNDLE BRANCH BLOCK [120+ ms QRS DURATION, UPRIGHT V1, 40+ ms S IN I/aVL/V4/V5/V6] LEFT ANTERIOR FASCICULAR BLOCK [QRS AXIS <= -45, QR IN I, RS IN II] SEPTAL MYOCARDIAL INFARCTION , PROBABLY OLD [40+ ms Q WAVE IN V1/V2] No previous ECG available for comparison Electronically Signed On 07-17-2024 15:08:07 CDT by Alejandro Flores M.D.
[2024-07-17 09:38] LABS: Basophils Absolute Auto 0.1 K/mm3 (0.0-0.1); Basophils Percent Auto 0.9 % (0.2-1.2); Eosinophils Absolute Auto 0.1 K/mm3 (0-0.3); Eosinophils Percent Auto 2.5 % (0-4.4); Hematocrit 35.1 % (37.0-47.0); Hemoglobin 11.4 g/dL (12.0-15.0); Immature Granulocyte Absolute 0.01 K/mm3 (0.00-0.031); Immature Granulocyte Percent A 0.2 % (0-0.5); Lymphocytes Percent Auto 30.4 % (18.3-44.2); Mean Corpuscular HGB Conc 32.5 g/dl (32-36); Mean Corpuscular Hemoglobin 31.1 pg (26-34); Mean Corpuscular Volume 95.6 fl (80-100); Mean Platelet Volume 9.5 fl (7.4-10.4); Monocytes Absolute Auto 0.4 K/mm3 (0.1-0.6); Neutrophils Absolute Auto 3.1 K/mm3 (1.3-6.7); Platelet Count Result 209 k/mm3 (150-375); Red Blood Count 3.67 M/mm3 (4.2-5.4); Red Cell Distribution Width 12.5 % (11.5-14.5); White Blood Count 5.3 K/mm3 (4.5-10.0)
[2024-07-17 09:45] LABS: Alanine Aminotransferase 15 U/L (6-35); Alkaline Phosphatase 70 U/L (38-126); Anion Gap 7 mmol/L (4-12); Aspartate Amino Transferase 25 U/L (14-36); Bilirubin,Total 0.4 mg/dL (0.2-1.3); Blood Urea Nitrogen 18 mg/dL (7-17); Calcium 9.1 mg/dL (8.4-10.2); Carbon Dioxide 30 mmol/L (22-30); Chloride 96 mmol/L (98-107); Estimated CRCL calculation 33 ml/min; Estimated Glomerular Filt Rate > 60; Glucose 129 mg/dL (65-110); Magnesium 1.5 mg/dL (1.6-2.3); Potassium 3.9 mmol/L (3.4-5.0); Sodium 133 mmol/L (137-145)
--- OUTSIDE RECORDS SUMMARY | 2024-07-17 10:25 | XMS_ITS | Clinical Summary ---
Author Organization [facility] Address [address] [place] [address] Care Team Providers Care Roustabout Crew Name Role Phone Fransico Crane PA-C Primary Care Provide r Source Comments [facility],non-owned Affiliates and Associated Physician Practices is amultiple site organization consisting of ambulatory clinics and hospital sitesin [place], [place], [place] and [place]. This disclosure is being madepursuant to the Care Everywhere program and may not contain all information available regarding this patient. Last updated 17.[facility] Allergies Active Allergy Reactions Criticality Noted Date Comments Codeine Rash Medium 04/30/2014 Contrast-Iodinated Agents For Ct/Other Rash,Other Medium 05/27/2017 IV DYE Lisinopril Other Low 04/30/2014 Cough, Cough, Cough Penicillins Rash Medium 04/30/2014 Sulfa Drugs Palpitations Low 04/30/2014 Medications * Be aware that medications may not be up to date on this document. Alwaysverify current medications with the patient. Propylene Glycol-Glycerin (EQ ARTIFICIAL TEARS) 1-0.3 % Instill 1 drop into both eyes 4X/day. 7 Active levothyroxine (SYNTHROID) 50 MCG tablet Take 50 mcg by mouth daily before breakfast Active propranolol CR 24hr (INDERAL LA) 60 MG capsule TAKE 1 CAPSULE BY MOUTH DAILY 30 capsule 11 8 Active carbidopa-levod opa (SINEMET) 25-100 MG tablet Take 1.5 tablets by mouth 3 times daily 135 tablet 11 8 Active Artificial Tear Solution (SOOTHE XP) SOLN ophthalmic solution Instill 1 drop into right eye 4 times daily as needed for Dry Eyes (for dryness and irritation) 10 mL 6 9 Active neomycin-polymy rojas-hc (CORTISPORIN) 3.5-38283-3 otic suspension Use three drops, once or twice daily, in each ear, as needed for itching 1 bottles 1 9 Active carboxymethylce llulose sodium (REFRESH TEARS) 0.5 % ophthalmic solution 1 drop 3 times daily Active ergocalciferol (DRISDOL) 1.25 MG (09544 UT) capsule Take 50,000 Units by mouth once daily Active trimethoprim-po lymyxin B (POLYTRIM) 13251-6.1 UNIT/ML-% ophthalmic solution Instill 1 drop into both eyes 2 times daily 10 mL 1 9 Active sodium chloride, hypertonic, (JOSE 128) 5 % ophthalmic solution Instill 1 drop into both eyes 3 times daily as needed 1 bottles 11 9 Active artificial tears ophthalmic ointment Instill into both eyes at bedtime 1 tube 4 0 Active artificial tears (ARTIFICIAL TEARS) 0.4 % opthalmic solution Instill 1 drop into both eyes 4 times daily 15 mL 11 0 Active olopatadine (PATANOL) 0.1 % ophthalmic solution Instill 1 drop into both eyes 2 times daily 15 mL 4 0 Active lifitegrast (XIIDRA) 5 % opthalmic solution Instill 1 drop into right eye 2 times daily 60 Each 0 Active clotrimazole-be tamethasone (LOTRISONE) 1-0.05 % cream Apply at each ear as needed & as directed for ear itching, up to twice daily. 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, left eye 06/24/2015 Blepharitis of right eye 04/01/2015 Blepharitis of left eye 04/01/2015 Corneal transplant failure 08/13/2014 Acquired stenosis of left nasolacrimal duct 06/19 Pain of left eye 07/08/2014 Pain around eye, left 07/08/2014 Immunizations Immunization Administration Dates Next Due INFLUENZA VACCINE 01/02/2017 Social History Tobacco Use Types Packs/Day Years Used Date Smoking Tobacco: Never Smokeless Tobacco: Never Alcohol Use Standard Drinks/Week Comments No 0 (1 standard drink = 0.6 oz pur e alcohol) Comments Unknown Sex and Gender Information Value Date Recorded Sex Assigned at Not on file Legal Sex Female 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 Gender Identity Not on file Sexual Orientation Not on file Last Filed Vital Signs Vital Sign Reading Time Taken Comments Blood Pressure 135/71 04/09/2017 2:30 PM TAIL DOGGER Pulse 64 04/09/2017 2:30 PM TAIL DOGGER Temperature 36.7 C (98.1 F) 02/27/2017 10:01 AM TAIL DOGGER Respiratory Rate - - Oxygen Saturation 97% 04/09/2017 2:30 PM TAIL DOGGER Inhaled Oxygen Concentration - - Weight 45.4 kg (100 lb) 03/25/2018 11:52 AM TAIL DOGGER reported Height 152.4 cm (5') 03/25/2018 11:52 AM TAIL DOGGER Body Mass Index 19.53 03/25/2018 11:52 AM TAIL DOGGER Plan of Treatment Health Maintenance Due Date Last Done Comments BONE DENSITY TESTING 1944 DTAP/TDAP/TD VACCINES (1 - Tdap) 11/11/1963 PNEUMOCOCCAL VACCINE 50+ (1 of 1 - PCV) 1994 ZOSTER VACCINE (1 of 2) 1994 Respiratory Syncytial Virus (RSV) Vaccine Pt: or over 60 yrs (1 - 1-dose 75+ series) 11/11/2019 COVID-19 VACCINE ( - 2023-2 5 season) 2023 DEPRESSION SCREENING 02/19/2024 INFLUENZA VACCINE (Season Ended) 2024 01/03/20 17 HEPATITIS B VACCINE Aged Out No longe r eligible based on patient's age to complete this topic HIB VACCINE Aged Out No longer eligi ble based on patient's age to complete this topic HPV VACCINE Aged Out No longer eligi ble based on patient's age to complete this topic MENINGOCOCCAL (Group B) VACC INE SHARED DECISION-MAKING Aged Out No longer eligibl e based on patient's age to complete this topic MENINGOCOCCAL GROUPS A/C/Y/W VACCINE Aged Out No longer eligible b ased on patient's age to complete this topic Insurance MEDICARE [facility] Care Teams Roustabout Crew Relationship Specialty Start Date End Date Fransico Crane PA-C [address] [place] [address] PCP - General 12/19/18
--- OUTSIDE RECORDS SUMMARY | 2024-07-17 10:25 | XMS_ITS | Continuity of Care Document ---
Author Organization [facility] Address [address] [place] [address] utive [facility] [address] [place] [address] Phone Care Team Providers Care Justice Of The Peace Name Role Phone Lexa Collins Unavailable Unavailable Procedures Procedure Date Office/outpatient Visit, Est Office/outpatient Visit, Est Office/outpatient Visit, Est Office/outpatient Visit, Est Eye Exam Established Pt Office/outpatient Visit, Est Eye Exam Established Pt Office/outpatient Visit, Est Office/outpatient Visit, Est Advance Directives Directive Yes / No Effective Date File Name No Information Encounters Encounter Description Practice Location Reason(s) For Visit Diagnoses Date Provider Providers Copied on Encounter Office/outpat ient Visit, [facility], [address] [place] [address] [address], [place], [place], [id number], [place] tel:[phone] [facility] No Information 0 Dennis Lindquist. On license of [facility] , [address], [place], [place], [facility], [place]. tel:[phone] Office/outpat ient Visit, [facility], [address] [place] [address] [address], [place], [place], [id number], [place] tel:[phone] [facility] No Information 0 Phil Valle. [address], [place], [address], [place]. tel:[phone] Office/outpat ient Visit, [facility], [address], [place], [place], [id number], [place] tel:[phone] [facility] No Information Sep-2 6-200 9 Krishnasamy Leonard. [address], [place], [address], [place]. tel:[phone] Office/outpat ient Visit, [facility], [address] [place] [address] [address], [place], [place], [id number], [place] tel:[phone] [facility] No Information Mar-2 5-200 9 Krishnasamy Leonard. [address], [place], [place], [facility], [place]. tel:[phone] [facility], [address] [place] [address] [address], [place], [place], [id number], [place] tel:[phone] [facility] No Information Nov-1 5-200 8 Krishnasamy Leonard. [address], [place], [place], [facility], [place]. tel:[phone] Office/outpat ient Visit, [facility], [address] [place] [address] [address], [place], [place], [id number], [place] tel:[phone] [facility] No Information Apr-0 4-200 8 Johanna Hayward. [address], [place], [address], [place]. tel:[phone] [facility], [address] [place] [address] [address], [place], [place], [id number], [place] tel:[phone] [facility] No Information Apr-2 5-200 8 Johanna Hayward. [address], [place], [address], [place]. tel:[phone] Office/outpat ient Visit, [facility], [address], [place], [place], [id number], [place] tel:[phone] [facility] No Information Oct-0 5-200 7 Johanna Yesy. [address] [facility] , [address], [place], [address], [place]. tel:[phone] Office/outpat ient Visit, [facility], [address], [place], [place], [id number], [place] tel:[phone] [facility] No Information Apr-2 3-200 7 Johanna Yesy. [address] [facility] [address] , [address], [place], [place], [facility], [place]. tel:[phone] Family History Family Member Type Diagnosis Age At Onset No Information Payers Payer name Insurance type Covered alliance party ID Authoriza tion(s) No Information Social History Type Description Quantity Date Captured Comments Sex Female Smoking Status No Information Chief Complaint And Reason For Visit No Information Reason For Referral Reason For Referral No Information History Of Present Illness Encounter Date Complaint History Of Prese nt Illness No Information Functional Status Date Functional Assessmen t No Information Instructions Date Instruction Additional Infor mation No Information Assessments Type Assessment Date No Information Patient Care Teams Name Effective Dates (start - stop) Status Members No Information
--- OUTSIDE RECORDS SUMMARY | 2024-07-17 10:25 | XMS_ITS | Encounter Summary ---
Author Organization [facility] Health Address [address] [place] [address] Care Team Providers Care Education Spec Name Role Phone Bartolo Yañez MD Primary Care Provider [phone] Mehran Castillo DO Primary Care Provider [phone] Fransico Crane PA-C Primary Care Provide r Encounter Details Date Type Department Care Team (Late st Contact Info) Description 05/27/2017 Ambulatory Consult [facility] [address] [facility] [address] [place] [address] Bartolo Yañez MD [address] [facility] [address] [facility] [address] [place] [address] Social History Tobacco Use Types Packs/Day Years Used Date Smoking Tobacco: Never Smokeless Tobacco: Never Alcohol Use Standard Drinks/Week Comments No 0 (1 standard drink = 0.6 oz pur e alcohol) Comments Unknown Sex and Gender Information Value Date Recorded Sex Assigned at Not on file Legal Sex Female 5:15 PM [employer] Gender Identity Not on file Sexual Orientation Not on file documented as of this encounter Plan of Treatment Not on file documented as of this encounter Visit Diagnoses Not on filedocumented in this encounter Care Teams Education Spec Relationship Specialty Start Date End Date Bartolo Yañez MD [address] [facility] [address] [place] [id number] PCP - General 10/01/14 12/25/17 Mehran Castillo DO [address] [place] [address] PCP - General 12/26/17 12/18/18 Fransico Crane PA-C [address] [place], [place] [id number] PCP - General 12/19/18 documented as of this encounter
--- NOTE | 2024-07-17 10:51 | PC.NURSE ---
pt refused straight catheter. purewick was placed
--- NOTE | 2024-07-17 10:54 | ED_ITS ---
HPI - Recheck/Abnormal Lab/Rx General Chief Complaint: Recheck/Abnormal Lab/Rx Stated Complaint: ABN LABS, low NA Time Seen by Provider: 07/17/24 09:19 Source: patient Mode of arrival: EMS Limitations: other (Poor historian) History of Present Illness HPI narrative: This is a 78-year-old female that presents to the emergency department for feeling generally unwell. Reportedly she had outpatient blood work which showed a low sodium which prompted her facility to bring her in. She does note endorse any focal symptoms. Related Data Home Medications ?Medication ?Instructions ?Recorded ?Confirmed ?Last Taken ?Type artificial tears solution eye drops 2 drp ophthalmic (eye) QID PRN dry 05/14/21 06/14/21 Unknown History eyes ibandronate 150 mg tablet (Boniva) 150 mg PO MONTHLY 05/14/21 06/14/21 Unknown History lifitegrast 5 % eye drops in a 1 drp RIGHT EYE BID 05/14/21 06/14/21 Unknown History dropperette (Xiidra) bisacodyl 10 mg rectal suppository 10 mg RECTAL DAILY PRN Constipation 06/14/21 06/14/21 Unknown History folic acid 400 mcg tablet 0.4 mg PO DAILY 06/14/21 06/14/21 Unknown History gabapentin 100 mg tablet 100 mg PO TID 06/14/21 06/14/21 Unknown History magnesium citrate 300 ml PO DAILY PRN Constipation 06/14/21 06/14/21 Unknown History magnesium hydroxide 400 mg/5 mL 400 mg PO HS PRN Constipation 06/14/21 06/14/21 Unknown History oral suspension (Milk of Magnesia) sodium phosphates 19 gram-7 197 ml RECTAL ONCE PRN Constipation 06/14/21 06/14/21 Unknown History gram/118 mL enema (Fleet Enema) nirmatrelvir 300 mg (150 mg ea PO 01/18/23 01/18/23 Unknown History x2)-ritonavir 100 mg tablet,dose pack (Paxlovid) Allergies Allergy/AdvReac Type Severity Reaction Status Date / Time codeine Allergy Severe Hives Verified 01/18/23 14:00 Iodinated Contrast Media Allergy Unknown hives Verified 01/18/23 14:00 lisinopril Allergy Unknown hives Verified 01/18/23 14:00 Penicillins Allergy Unknown rash Verified 01/18/23 14:00 Sulfa (Sulfonamide Allergy Unknown rash Verified 01/18/23 14:00 Antibiotics) Contrast Media Allergy Unknown hives Uncoded 06/16/21 12:47 Review of Systems 2 Review of Systems: ROS unobtainable: Yes unobtainable due to medical condition [facility] Past Medical History Medical History (Updated 07/17/24 @ 11:35 by Sonya Pillai PA-C) History of ulcer disease DVT (deep venous thrombosis) Parkinson disease TIA (transient ischemic attack) CVA (cerebral vascular accident) Blindness Anemia GI (gastrointestinal bleed) Severe protein-calorie malnutrition Shingles Degenerative disc disease Glaucoma Hypothyroidism Cerebrovascular disease Pressure ulcer, stage 1 Spastic dysphonia Surgical History Surgical History (Updated 01/18/23 @ 12:43 by Yaa Peters MD) S/P hip hemiarthroplasty Left, April [address] Moore per patient History of corneal transplant History of eye prosthesis Left History of hysterectomy for benign disease Family History Family History Father Patient's father is Family history of emphysema Mother Family history of cardiovascular disease Social History Social History Social History: Surrogate decision maker: Macarena Celestin, friend. Code status: Full code. Smoking status: Never smoker Second hand tobacco smoke exposure: No Alcohol intake: never Substance use: never Substance use type: does not use Additional living arrangements comments: Resides at [facility]. . She has a son but they are estranged apparently. Spiritual care concerns: No Exam 2 Narrative: GENERAL: Well-appearing, thin, and in no acute distress. HEAD: Normocephalic, atraumatic. EYES: EOMI. ENT: Nares clear, no rhinorrhea or epistaxis. Mucous membranes moist. Oropharynx without tonsillar hypertrophy exudate or other lesions. NECK: Supple. No adenopathy or masses. CHEST: Clear to auscultation. No respiratory distress. No wheezes rales or rhonchi HEART: Regular rate and rhythm. No murmur heard. Normal peripheral pulses. ABDOMEN: Soft, nontender, nondistended, normal active bowel sounds. EXTREMITIES: Normal range of motion. No edema. SKIN: Warm, dry, no rash. NEURO: No focal deficits. Alert and oriented x3. PSYCH: Normal mood and affect Course Course Emergency Course: patient updated on her workup Vital Signs Vital signs: Vital Signs Pulse Rate 75 07/17/24 09:09 Respiratory Rate 18 07/17/24 09:09 Blood Pressure 138/67 07/17/24 09:09 Pulse Oximetry 100 07/17/24 09:09 Oxygen Delivery Room Air 07/17/24 09:09 Temperature 97.9 F 07/17/24 09:19 Pulse Rate 75 07/17/24 09:19 Respiratory Rate 20 07/17/24 09:19 Blood Pressure 138/67 07/17/24 09:19 Pulse Oximetry 100 07/17/24 09:19 Oxygen Delivery Room Air 07/17/24 09:09 MDM - Recheck/Abnormal Lab/Rx MDM Narrative Medical decision making narrative: Patient presents to the emergency department for feeling generally unwell. Reportedly had a low sodium at her facility. Her vitals are stable. She is afebrile and nontoxic appearing. Cbc without leukocytosis. Shows normocytic anemia with hemoglobin of 11.4. Metabolic panel with hyponatremia which appears to be around her baseline. Her magnesium was noted to be low, this was replaced. Urine with evidence of infection. Patient given dose of Rocephin in the ER. Will be started on oral antibiotics. She was updated on her workup and agrees with plan of care. Given warnings to return to the ER Differential Diagnosis Differential diagnosis: Likely other (UTI, dehydration, electrolyte derangement) Lab Data Attestation: I reviewed the patient's lab results. 07/17/24 09:28 07/17/24 09:28 Labs: Lab Results 07/17/24 07/17/24 Range/Units 09:28 10:52 WBC 5.3 (4.5-10.0) K/mm3 RBC 3.67 L (4.2-5.4) M/mm3 Hgb 11.4 L (12.0-15.0) g/dL Hct 35.1 L (37.0-47.0) % MCV 95.6 (80-100) fl MCH 31.1 (26-34) pg MCHC 32.5 (32-36) g/dl RDW 12.5 (11.5-14.5) % Plt Count 209 (150-375) k/mm3 MPV 9.5 (7.4-10.4) fl Immature Gran % (Auto) 0.2 (0-0.5) % Neut % (Auto) 58.0 (45.5-73.1) % Lymph % (Auto) 30.4 (18.3-44.2) % [place] % (Auto) 8.0 (2.6-8.5) % Eos % (Auto) 2.5 (0-4.4) % Baso % (Auto) 0.9 (0.2-1.2) % Lymph # (Auto) 1.60 (0.9-3.2) K/mm3 [place] # (Auto) 0.4 (0.1-0.6) K/mm3 Eos # (Auto) 0.1 (0-0.3) K/mm3 Baso # (Auto) 0.1 (0.0-0.1) K/mm3 Abs Immat Gran (auto) 0.01 (0.00-0.031) K/mm3 Absolute Neuts (auto) 3.1 (1.3-6.7) K/mm3 Absolute Nucleated RBC 0.000 (0.0-0.012) K/mm3 Nucleated RBC % 0.0 (0.0-0.2) % Sodium 133 L (137-145) mmol/L Potassium 3.9 (3.4-5.0) mmol/L Chloride 96 L (98-107) mmol/L Carbon Dioxide 30 (22-30) mmol/L Anion Gap 7 (4-12) mmol/L BUN 18 H (7-17) mg/dL Creatinine 0.61 L (0.7-1.0) mg/dL Estim Creat Clear Calc 33 ml/min Estimated GFR > 60 (59 - ) Glucose 129 H (65-110) mg/dL Calcium 9.1 (8.4-10.2) mg/dL Magnesium 1.5 L (1.6-2.3) mg/dL Total Bilirubin 0.4 (0.2-1.3) mg/dL AST 25 (14-36) U/L ALT 15 (6-35) U/L Alkaline Phosphatase 70 (38-126) U/L Total Protein 7.0 (6.3-8.2) g/dL Albumin 4.0 (3.5-5.1) g/dL Urine Color Yellow (Yellow) Urine Appearance Turbid H (Clear) Urine pH 6.0 (5.0-9.0) Ur Specific [place] 1.009 (1.001-1.035) Urine Protein Negative (Negative) mg/dL Urine Glucose (UA) Negative (Negative) mg/dL Urine Ketones Negative (Negative) mg/dL Ur Blood (Man) 1+ H (Negative) Urine Nitrate Positive H (Negative) Urine Bilirubin Negative (Negative) Urine Urobilinogen 0.2 (<2.0) mg/dL Leukocyte Esterase Rfl 3+ H (Negative) RADHA/UL Urine RBC 0-2 (0-2) /hpf Urine WBC >100 H (0-3) /hpf Ur Squamous Epith Cells None seen (Few) /hpf Urine Bacteria 4+ H /hpf Urine Casts 3-5 ECG Data EKG #1: ECG completion date: 07/17/24 EKG Interpretation: normal rate, sinus rhythm, no ST changes and normal QT Critical Care Time Critical Care Time Critical Care Time: No Discharge Plan Discharge Clinical Impression: Acute UTI, Hypomagnesemia Patient Disposition: NH Assisted/Asst Living Condition: Stable Instructions: Antibiotic Form, Hypomagnesemia (ED), Urinary Tract Infection in Older Adults (ED) Additional Instructions: Return to the emergency department if you experience fever, chest pain, shortness of breath, abdominal pain with nausea and vomiting, weakness, numbness, or any other symptoms that are concerning to you. Take oral antibiotic as prescribed Follow up with primary care doctor Patient Language: [place] Prescriptions: New cefdinir 300 mg capsule 300 mg PO Q12H 5 Days Qty: 10 0RF No Action gabapentin 100 mg Tablet 100 mg PO TID folic acid 400 mcg Tablet 0.4 mg PO DAILY magnesium hydroxide [Milk of Magnesia] 400 mg/5 mL Suspension 400 mg PO HS PRN (Reason: Constipation) bisacodyl 10 mg Suppository 10 mg RECTAL DAILY PRN (Reason: Constipation) Fleet Enema 19-7 gram/118 mL Enema 197 ml RECTAL ONCE PRN (Reason: Constipation) magnesium citrate Solution 300 ml PO DAILY PRN (Reason: Constipation) pantoprazole 40 mg tablet,delayed release (DR/EC) 40 mg PO BID Qty: 60 0RF ferrous sulfate 325 mg (65 mg iron) tablet 325 mg PO BID Qty: 60 0RF Paxlovid 300 mg (150 mg x 2)-100 mg tablets,dose pack PO ibandronate [Boniva] 150 mg Tablet 150 mg PO MONTHLY Rx Instructions: last day of every month Xiidra 5 % Dropperette 1 drp RIGHT EYE BID artificial tears solution Drops 2 drp OPHTHALMIC (EYE) QID PRN (Reason: dry eyes) Rx Instructions: lt eye artificial docusate sodium 100 mg tablet 200 mg PO .QHS Qty: 60 1RF polyethylene glycol 3350 [Miralax] 17 gram powder in packet 17 g PO DAILY Qty: 30 2RF Dulcolax (magnesium hydroxide) 1,200 mg tablet,chewable 1,200 mg PO QHS PRN (Reason: constipation) Qty: 90 3RF triamcinolone acetonide 0.1 % cream 1 applic topical BID Qty: 30 1RF Rx Instructions: apply to dry flaky skin levothyroxine 50 mcg tablet 50 mcg PO DAILY Qty: 30 5RF ergocalciferol (vitamin D2) 1,250 mcg (50,000 unit) capsule 50,000 unit PO .COMPLEX Qty: 6 1RF Rx Instructions: 50,000 units PO every other week on wednesdays acetaminophen [Mapap (acetaminophen)] 325 mg Tablet 650 mg PO Q4H PRN (Reason: Pain) Qty: 0 0RF lidocaine [Lidocaine Pain Relief] 4 % Adhesive Patch,Medicated 3 patch transdermal DAILY Qty: 0 0RF Rx Instructions: apply to lt shoulder, apply 2 patches under rt breast mirtazapine [Remeron] 15 mg Tablet 15 mg PO HS Qty: 30 0RF Biotene Moisturizing Mouth Dellrose,Non-Aerosol 1 spray PO PRN PRN (Reason: Dry Mouth) Qty: 0 0RF Follow-up/Referrals: UNKNOWN,DOCTOR [Primary Care Provider] - Stand Alone Forms: Correction Discharge
[2024-07-17 11:04] LABS: Add Urine Microscopic? YES; Appearance Urine Turbid (Clear); Bacteria Urine 4+ /hpf; Bilirubin Urine Negative (Negative); Blood Urine 1+ (Negative); Color Urine Yellow (Yellow); Glucose Urine UA Negative (Negative); Ketones Urine Negative (Negative); Leukocyte Esterase Ur 3+ LEU/UL (Negative); Nitrate Urine Positive (Negative); Protein Urine Negative (Negative); RBC Urine 0-2 /hpf (0-2); Specific Grav Ur 1.009 (1.001-1.035); Squamous Epithelial Cell Urine None Seen /hpf (Few); Urobilinogen Urine 0.2 mg/dL (<2.0); WBC Urine >100 /hpf (0-3)
[2024-07-17] MEDS: MAGNESIUM SULF 2 GM/WATER 50ML 2 GM/50 ML BAG IVPB (11:26)
[2024-07-17] MEDS: SODIUM CHLORIDE 0.9% IV 500 ML 999 ML IV CONT (11:27)
--- NOTE | 2024-07-17 13:32 | PC.NURSE ---
report called to [facility] and given to Olga Lidia DANIELS. Waiting for transport at this time
== END 2024-07-17 14:48 ==
PROVIDERS: Emergency Provider Physician Assistant
DX: N39.0 Urinary tract infection, site not specified (principal); E83.42 Hypomagnesemia; Z86.718 Personal history of other venous thrombosis and embolism; Z86.73 Personal history of transient ischemic attack (TIA), and cerebral infarction without residual deficits; H40.9 Unspecified glaucoma; E03.9 Hypothyroidism, unspecified
CPT/HCPCS: 36415; 80053; 81001; 83735; 85025; 87077; 87086; 87186; 93005; 96365; 96366; 96367; 99284; J0696; J3475; J7040